=== PATIENT | female | born 1930 | race African-American/Black ===

== ENCOUNTER 2016-05-20 11:34 | Emergency (ER) | payer MEDICARE, MEDICAID ==
[~2016-05-20] VITALS: Ht 177.8 cm; Wt 80.3 kg
[~2016-05-20 11:34] MED LIST: FOLI1TAB16 PO; MECL12.5 PO; METO50TA3 PO; OXYB5SYR2 PO; SITA50TA PO
[2016-05-20 12:16] LABS: BASOPHILS % (AUTO) 0.4 % (0.0-2.0); DIFF TOTAL % 100 %; EOSINOPHILS % (AUTO) 0.5 % (0.0-6.0); HEMATOCRIT 37 % (33-45); HEMOGLOBIN 12.7 g/dL (11.5-14.8); LYMPHOCYTES # (AUTO) 1.5 /CMM (0.8-4.8); LYMPHOCYTES % (AUTO) 31.8 % (20.0-44.0); MEAN CORPUSCULAR HEMOGLOBIN 30 PG (26.0-33.0); MEAN CORPUSCULAR HGB CONC 34 g/dl (31.0-36.0); MEAN CORPUSCULAR VOLUME 89 fL (82-100); MONOCYTES # (AUTO) 0.9 /CMM (0.1-1.30); MONOCYTES % (AUTO) 18.4 % (2.0-12.0); NEUTROPHILS # (AUTO) 2.2 /CMM (1.8-8.9); NEUTROPHILS % (AUTO) 48.9 % (43.0-81.0); PLATELET COUNT (AUTO) 156 /CMM (150-450); RED BLOOD CELL COUNT(AUTO) 4.19 MIL/uL (4.0-5.2); WHITE BLOOD COUNT (AUTO) 4.7 K/uL (4.3-11.0)
[2016-05-20] MEDS ORDERED: NIFE30TA89 PO (12:20)
[2016-05-20] MEDS ORDERED: LOSA50TA21 PO (12:20)
[2016-05-20] MEDS ORDERED: METO25TA6 PO (12:20)
[2016-05-20] MEDS ORDERED: BLOO-697 IN (12:20)
[2016-05-20] MEDS ORDERED: ATOR40TA PO (12:20)
[2016-05-20] MEDS ORDERED: GLIP10TA11 PO (12:20)
[2016-05-20] MEDS ORDERED: SERT100T12 PO (12:20)
[2016-05-20] MEDS ORDERED: OMEP40CA37 PO (12:20)
[2016-05-20 12:28] LABS: KETONES,URINE Negative (NEGATIVE); LEUKOCYTE ESTERASE ,URINE Negative (NEGATIVE); PH,URINE 5.5 (5.0-8.0)
[2016-05-20 12:28] LABS: ALBUMIN 3.6 g/dL (3.4-5.0); BILIRUBIN,TOTAL 0.5 mg/dL (0.2-1.0); CALCIUM, SERUM 9.3 mg/dL (8.5-10.1); CREATININE 0.9 mg/dL (0.6-1.3); TOTAL PROTEIN, SERUM 7.2 g/dL (6.4-8.2)
[2016-05-20 12:33] LABS: ADD UA MICROSCOPIC YES
[2016-05-20 12:46] LABS: ADD URINE CULTURE NO; WBC,URINE 0-2 /HPF (0-3)
[2016-05-20] MEDS ORDERED: INSULIN REGULAR, HUMAN 100 UNIT/ML 10 ML VIAL ONE (13:17)
[2016-05-20] MEDS ORDERED: IV NS 0.9% 1,000 ML ONE (13:17)
[2016-05-20] MEDS ORDERED: IV SET PRIMARY PUMP SET 1 EA INFUS.SET MC ONE (13:17)
[2016-05-20] MEDS ORDERED: IV NS 0.9% 1,000 ML BAG IV ONE (13:30)
[2016-05-20] MEDS ORDERED: INSULIN REGULAR, HUMAN 100 UNIT/ML 10 ML VIAL SQ ONE (13:30)
[2016-05-20 15:36] VITALS: BP 155/76
== END 2016-05-20 15:38 | disposition home or self-care (01) ==
LOC: EDBD 11:35 → ER 11:35
DX: I44.7 Left bundle-branch block, unspecified (principal); E11.65 Type 2 diabetes mellitus with hyperglycemia; E86.0 Dehydration; I10 Essential (primary) hypertension; Z95.1 Presence of aortocoronary bypass graft
CPT/HCPCS: 36415; 80053; 81001; 82962; 84484; 85025; 93005; 96360; 96372; 99285; A4606; J1815; J7030; 81000-TC; Z7610

== ENCOUNTER 2016-05-26 12:37 | Emergency (ER) | payer MEDICARE, MEDICAID ==
[~2016-05-26] VITALS: Ht 157.5 cm; Wt 70.3 kg
[~2016-05-26 12:37] MED LIST changes: +ATOR40TA PO; +BLOO-697 IN; +GLIP10TA11 PO; +LOSA50TA21 PO; +METO25TA6 PO; +NIFE30TA89 PO; +OMEP40CA37 PO; +SERT100T12 PO
[2016-05-26] MEDS ORDERED: IV NS 0.9% 1,000 ML BAG IV ONE (13:00)
[2016-05-26] MEDS ORDERED: IV NS 0.9% 1,000 ML ONE (13:05)
[2016-05-26] MEDS ORDERED: IV SET PRIMARY 1 EA INFUS.SET MC ONE (13:05)
[2016-05-26 13:09] LABS: ABG HCO3 25.1 mmol/L; ABG PCO2 38.3 mmHg (35.0-45.0); ABG PH 7.434 (7.350-7.450); ABG PO2 76.1 mmHg (75.0-100.0); ABG TOTAL HEMOGLOBIN 13.2 G/dL (12.0-16.0); O2Hb 93.5 % (94.0-97.0)
[2016-05-26 13:10] LABS: BASOPHILS % (AUTO) 0.6 % (0.0-2.0); DIFF TOTAL % 100 %; EOSINOPHILS % (AUTO) 0.2 % (0.0-6.0); HEMATOCRIT 38 % (33-45); HEMOGLOBIN 12.5 g/dL (11.5-14.8); LYMPHOCYTES # (AUTO) 1.8 /CMM (0.8-4.8); LYMPHOCYTES % (AUTO) 32.3 % (20.0-44.0); MEAN CORPUSCULAR HEMOGLOBIN 30 PG (26.0-33.0); MEAN CORPUSCULAR HGB CONC 33 g/dl (31.0-36.0); MEAN CORPUSCULAR VOLUME 90 fL (82-100); MONOCYTES # (AUTO) 1.2 /CMM (0.1-1.30); MONOCYTES % (AUTO) 21.2 % (2.0-12.0); NEUTROPHILS # (AUTO) 2.6 /CMM (1.8-8.9); NEUTROPHILS % (AUTO) 45.7 % (43.0-81.0); PLATELET COUNT (AUTO) 158 /CMM (150-450); RED BLOOD CELL COUNT(AUTO) 4.19 MIL/uL (4.0-5.2); WHITE BLOOD COUNT (AUTO) 5.6 K/uL (4.3-11.0)
[2016-05-26 13:17] LABS: CREATININE 0.9 mg/dL (0.6-1.3); POTASSIUM 4.1 mmol/L (3.5-5.1)
[2016-05-26 14:50] LABS: KETONES,URINE Negative (NEGATIVE); LEUKOCYTE ESTERASE ,URINE Negative (NEGATIVE)
[2016-05-26 14:52] LABS: ADD UA MICROSCOPIC YES
[2016-05-26 15:03] LABS: ADD URINE CULTURE NO; WBC,URINE 0-2 /HPF (0-3)
[2016-05-26 15:31] VITALS: BP 128/74
== END 2016-05-26 15:32 | disposition home or self-care (01) ==
LOC: ER 12:39
DX: E11.65 Type 2 diabetes mellitus with hyperglycemia (principal); F32.9 Major depressive disorder, single episode, unspecified; I10 Essential (primary) hypertension; Z95.1 Presence of aortocoronary bypass graft; R82.99 Other abnormal findings in urine
CPT/HCPCS: 36415; 36600; 80048; 81001; 82962 ×2; 85025; 87086; 96360; 99284; A4606; J7030; 81000-TC; Z7610

== ENCOUNTER 2016-07-28 10:07 | Emergency (ER) | payer MEDICARE, MEDICAID ==
[~2016-07-28] VITALS: Ht 167.6 cm; Wt 92.1 kg
[~2016-07-28 10:07] MED LIST changes: -FOLI1TAB16 PO; -METO50TA3 PO; -SITA50TA PO
--- NOTE | 2016-07-28 10:13 | NUR ---
preston from assisted liviing for evaluation dt loss of appetite x 3 days. Pt is aao4, appears in no apparent distress, respiration even and unlabored,. no nausea and vomitting. Skin is warm to touch and non diaphoretic. patient is afebrile. no chest pain. vss
[2016-07-28 10:30] LABS: BASOPHILS # (AUTO) 0.1 /CMM (0.0-0.2); BASOPHILS % (AUTO) 1.7 % (0.0-2.0); EOSINOPHILS % (AUTO) 0.2 % (0.0-6.0); HEMATOCRIT 43 % (33-45); HEMOGLOBIN 14.1 g/dL (11.5-14.8); LYMPHOCYTES # (AUTO) 0.9 /CMM (0.8-4.8); MEAN CORPUSCULAR HEMOGLOBIN 30 PG (26.0-33.0); MEAN CORPUSCULAR HGB CONC 33 g/dl (31.0-36.0); MEAN CORPUSCULAR VOLUME 90 fL (82-100); MONOCYTES # (AUTO) 0.6 /CMM (0.1-1.30); MONOCYTES % (AUTO) 10.3 % (2.0-12.0); NEUTROPHILS # (AUTO) 4.5 /CMM (1.8-8.9); NEUTROPHILS % (AUTO) 73.8 % (43.0-81.0); PLATELET COUNT (AUTO) 185 /CMM (150-450); RDW COEFFICIENT OF VARIATION 11.7 (11.5-15.0); RED BLOOD CELL COUNT(AUTO) 4.79 MIL/uL (4.0-5.2); WHITE BLOOD COUNT (AUTO) 6.1 K/uL (4.3-11.0)
[2016-07-28] MEDS ORDERED: IV NS 0.9% 1,000 ML BAG IV ONE (10:30)
--- NOTE | 2016-07-28 10:30 | NUR ---
iv accessed to right wrist 20, blood sample sent to lab
[2016-07-28] MEDS ORDERED: IV SET PRIMARY PUMP SET 1 EA INFUS.SET MC ONE (10:31)
[2016-07-28] MEDS ORDERED: IV NS 0.9% 1,000 ML ONE (10:31)
--- NOTE | 2016-07-28 10:36 | NUR ---
pharmacy technician per diem at
[2016-07-28 10:41] LABS: CALCIUM, SERUM 9.5 mg/dL (8.5-10.1); CREATININE 0.9 mg/dL (0.6-1.3); POTASSIUM 3.9 mmol/L (3.5-5.1)
[2016-07-28 10:55] LABS: APPEARANCE,URINE Clear (CLEAR); BILIRUBIN,URINE Negative (NEGATIVE); BLOOD, URINE Trace-intact Ery/uL (NEGATIVE); COLOR,URINE Yellow (YELLOW); KETONES,URINE Negative (NEGATIVE); LEUKOCYTE ESTERASE ,URINE Negative (NEGATIVE); NITRITE, URINE Negative (NEGATIVE); PROTEIN,URINE 30 mg/dl (NEGATIVE); UGLUCOSE >=1000 mg/dL (NEGATIVE); UROBILINOGEN,URINE 0.2 EU/dL (0.2)
[2016-07-28 10:58] LABS: THYROID STIMULATING HORMONE 0.582 uIU/mL (0.358-3.74)
[2016-07-28 11:05] LABS: WBC,URINE 0-2 /HPF (0-3)
[2016-07-28 11:06] LABS: ADD URINE CULTURE NO; BACTERIA,URINE Rare /HPF (None Seen); SQUAMOUS EPITHELIAL CELL,UR Few /HPF (None Seen)
[2016-07-28] MEDS ORDERED: MEMA5TAB15 PO (11:11)
[2016-07-28] MEDS ORDERED: DULO30CA51 PO (11:11)
[2016-07-28] MEDS ORDERED: MECL-102 PO (11:11)
[2016-07-28] MEDS ORDERED: ACET-2117 PO (11:11)
--- NOTE | 2016-07-28 12:49 | NUR ---
CALLED [facility] FOR TRANSPORTATION GOING BACK TO [facility], [facility] 30 MIN
[2016-07-28 13:05] VITALS: BP 135/78
--- NOTE | 2016-07-28 13:24 | NUR ---
IV removed. Catheter intact and site benign. Pressure and 4x4 applied to site. No bleeding noted.
== END 2016-07-28 13:28 | disposition home or self-care (01) ==
LOC: ER 10:15
DX: F32.9 Major depressive disorder, single episode, unspecified (principal); I10 Essential (primary) hypertension; E11.9 Type 2 diabetes mellitus without complications; Z95.1 Presence of aortocoronary bypass graft; R82.79 Other abnormal findings on microbiological examination of urine
CPT/HCPCS: 36415; 80048; 81001; 84443; 85025; 87086; 93005; 96360; 99285; A4606; J7030; 81000-TC; Z7610

== ENCOUNTER 2016-08-01 17:07 | Inpatient (IN) | payer MEDICARE, MEDICAID ==
[~2016-08-01] VITALS: Ht 160 cm; Wt 80.3 kg
[~2016-08-01 17:07] MED LIST changes: +ACET-2117 PO; +DULO30CA51 PO; +MECL-102 PO; -MECL12.5 PO; +MEMA5TAB15 PO; -SERT100T12 PO
--- NOTE | 2016-08-01 17:08 | NUR ---
nick from [facility] c/o nausea and vomtting since this am. Patient is also complaining of epigastric pain, 4/10. Patient is aao4, appears in no apparent distress. Skin is warm to touch and non diaphoretic. Patient is afebrile. Gowned patient and placed on tele monitor. vss.
--- NOTE | 2016-08-01 17:25 | NUR ---
Urine sample sent to lab
[2016-08-01 17:43] LABS: APPEARANCE,URINE Clear (CLEAR); BILIRUBIN,URINE Negative (NEGATIVE); BLOOD, URINE Trace-intact Ery/uL (NEGATIVE); COLOR,URINE Yellow (YELLOW); KETONES,URINE Negative (NEGATIVE); LEUKOCYTE ESTERASE ,URINE Negative (NEGATIVE); NITRITE, URINE Negative (NEGATIVE); PROTEIN,URINE 100 mg/dl (NEGATIVE); UGLUCOSE >=1000 mg/dL (NEGATIVE); UROBILINOGEN,URINE 0.2 EU/dL (0.2)
--- NOTE | 2016-08-01 17:43 | NUR ---
ekg at bs
[2016-08-01] MEDS ORDERED: IV SET PRIMARY 1 EA INFUS.SET MC ONE (17:45)
[2016-08-01] MEDS ORDERED: IV NS 0.9% 500 ML IV ONE (17:45)
[2016-08-01] MEDS ORDERED: ONDANSETRON HCL/PF 4 MG/2 ML VIAL ONE (17:45)
[2016-08-01 17:51] LABS: ADD URINE CULTURE NO; BACTERIA,URINE None seen /HPF (None Seen); SQUAMOUS EPITHELIAL CELL,UR Few /HPF (None Seen); WBC,URINE 0-2 /HPF (0-3)
[2016-08-01] MEDS ORDERED: ONDANSETRON HCL/PF 4 MG/2 ML VIAL IVP ONE (18:00)
[2016-08-01] MEDS ORDERED: IV NS 0.9% 500 ML BAG IV ONE (18:00)
[2016-08-01 18:02] LABS: CALCIUM, SERUM 9.8 mg/dL (8.5-10.1); CARBON DIOXIDE 26 mmol/L (21-32); CHLORIDE 98 mmol/L (98-107); CREATININE 0.8 mg/dL (0.6-1.3); GLUCOSE 312 mg/dL (74-106); POTASSIUM 3.5 mmol/L (3.5-5.1); SODIUM SERUM 136 mmol/L (136-145); UREA NITROGEN, BLOOD 18 mg/dL (7-18)
[2016-08-01 18:05] LABS: BASOPHILS # (AUTO) 0.5 /CMM (0.0-0.2); EOSINOPHILS % (AUTO) 0.3 % (0.0-6.0); HEMATOCRIT 43 % (33-45); HEMOGLOBIN 14.5 g/dL (11.5-14.8); INR 1.06 (0.87-1.13); LYMPHOCYTES # (AUTO) 1.8 /CMM (0.8-4.8); MEAN CORPUSCULAR HEMOGLOBIN 30 PG (26.0-33.0); MEAN CORPUSCULAR HGB CONC 34 g/dl (31.0-36.0); MEAN CORPUSCULAR VOLUME 89 fL (82-100); MONOCYTES # (AUTO) 1.6 /CMM (0.1-1.30); MONOCYTES % (AUTO) 15.7 % (2.0-12.0); NEUTROPHILS # (AUTO) 6.1 /CMM (1.8-8.9); NEUTROPHILS % (AUTO) 60.8 % (43.0-81.0); PLATELET COUNT (AUTO) 186 /CMM (150-450); RDW COEFFICIENT OF VARIATION 11.8 (11.5-15.0); RED BLOOD CELL COUNT(AUTO) 4.81 MIL/uL (4.0-5.2)
[2016-08-01 18:07] LABS: ALANINE AMINOTRANSFERASE 75 U/L (12-78); ALBUMIN 4.2 g/dL (3.4-5.0); ALKALINE PHOSPHATASE 106 U/L (46-116); ASPARTATE AMINOTRANSFERASE 49 U/L (15-37); BILIRUBIN,DIRECT 0.1 mg/dL (0.0-0.2); BILIRUBIN,TOTAL 0.6 mg/dL (0.2-1.0); LIPASE 106 U/L (73-393); TOTAL PROTEIN, SERUM 8.5 g/dL (6.4-8.2)
[2016-08-01 18:08] LABS: BASOPHILS % (AUTO) 5.2 % (0.0-2.0)
[2016-08-01 18:10] LABS: TROPONIN I < 0.017 ng/mL (0.00-0.056)
--- NOTE | 2016-08-01 18:15 | NUR ---
Pt is back from ct
--- NOTE | 2016-08-01 18:30 | NUR ---
PAGED EQUIPMENT PROCESSOR FOR [facility] DR BROOKS
--- NOTE | 2016-08-01 18:41 | NUR ---
CALLED NURSING SUP FOR TELE BED
[2016-08-01] MEDS ORDERED: OXYB5TAB11 PO (18:53)
[2016-08-01 18:55] LABS: ANISOCYTOSIS 1+; LYMPHOCYTES % (MANUAL) 25 % (16-48); MONOCYTES % (MANUAL) 19 % (0-11.0); NEUTROPHILS % (MANUAL) 54 (42-76); PLATELET ESTIMATE ADEQU; REACTIVE LYMPHOCYTES 2 % (0-0)
--- NOTE | 2016-08-01 19:02 | NUR ---
Report given to JACKIE Lopez for change of condition
--- NOTE | 2016-08-01 19:03 | NUR ---
patient transported to [address] [place] [address]
--- NOTE | 2016-08-01 19:15 | NUR ---
CONCERT PIANIST ADMITTING NOTE RECEIVED PT COMING FROM ER VIA GURNEY, NO COMPLAINT OF PAIN OR RESPIRATORY DISTRESS NOTED DURING PHYSICAL ASSESSMENT, VITALS ARE WNL, ADMITTING DR. WILL BE GRAY MCKEON. MD AWARE OF ADMISSION WELL CHARGE NURSE, PT WILL BE KEPT CLEAN/DRY AND COMFORTABLE, SAFETY MEASURES WILL BE MAINTAINED AT ALL TIMES, NEEDS WILL BE ANTICIPATED AND ATTENDED TO DURING HOURLY ROUNDS AND NEEDED.
[2016-08-01 20:00] VITALS: BP 139/78
[2016-08-01] MEDS ORDERED: DEXTROSE 50%-WATER 50 ML DISP.SYRIN IV PRN (20:30)
[2016-08-01] MEDS ORDERED: *INSULIN REGULAR(HUMULIN R)HUM 100 UNIT/ML VIAL SQ PRN (20:30)
[2016-08-01] MEDS ORDERED: ENOXAPARIN SODIUM 40 MG/0.4 ML DISP.SYRIN SQ SCH (20:30)
[2016-08-01] MEDS ORDERED: ACETAMINOPHEN 325 MG TABLET PO PRN (20:30)
[2016-08-01 20:44] LABS: CANNABINOID, URINE NEGATIVE (NEGATIVE); PHENCYCLIDINE SCREEN,URINE NEGATIVE (NEGATIVE)
[2016-08-01 20:57] LABS: THYROID STIMULATING HORMONE 0.763 uIU/mL (0.358-3.74)
[2016-08-01] MEDS ORDERED: MEMANTINE HCL 5 MG TABLET ONE (21:07)
[2016-08-01] MEDS ORDERED: ATORVASTATIN 40 MG TABLET ONE (21:07)
[2016-08-01] MEDS ORDERED: ENOXAPARIN SODIUM 40 MG/0.4 ML DISP.SYRIN SQ ONE (21:07)
--- NOTE | 2016-08-01 21:30 | NUR ---
BS IS 292 PT TO REMAIN NPO UNTIL SWALLOW EVAL, NO INSULIN PROVIDED TO PREVENT HYPOGLYCEMIA, WILL CONTINUE TO MONITOR BS CLOSELY FOR NEED FOR COVERAGE.
--- NOTE | 2016-08-01 21:30 | NUR ---
PT IS ASKING FOR HER PURSE, SPOKE TO HARRISON AND HE CONFIRMED WITH [facility] THAT PURSE REMAINED AT THE FACILITY, INFORMED PT, PT VERBALIZES UNDERSTANDING.
[2016-08-01] MEDS: BLOOD SUGAR DIAGNOSTIC 1 EACH STRIP IN SCH (21:36)
[2016-08-01] MEDS ORDERED: INSULIN REGULAR, HUMAN 100 UNIT/ML 10 ML VIAL ONE (21:47)
[2016-08-01] MEDS: ATORVASTATIN 40 MG TABLET PO SCH (21:49)
[2016-08-01] MEDS: MEMANTINE HCL 5 MG TABLET PO SCH (21:50)
--- NOTE | 2016-08-01 21:51 | NUR ---
PO MEDICATION NOT GIVEN DUE TO PENDING SWALLOW EVALUATION
[2016-08-02] VITALS (7 sets, daily range): BP systolic 110–151; BP diastolic 65–84
[2016-08-02] MEDS ORDERED: IV NS 0.9% 1,000 ML ONE (01:08)
[2016-08-02] MEDS ORDERED: IV SET PRIMARY PUMP SET 1 EA INFUS.SET MC ONE (01:09)
[2016-08-02] MEDS: IV NS 0.9% 1,000 ML IV PRN (01:27)
[2016-08-02] MEDS: BLOOD SUGAR DIAGNOSTIC 1 EACH STRIP IN SCH ×4 (06:22→21:13)
--- NOTE | 2016-08-02 07:09 | NUR ---
TELE CLOSING NOTE PT REMAINED STABLE DURING NIGHT, ENDORSE TO AM NURSE FOR NIKA.
--- NOTE | 2016-08-02 07:40 | NUR ---
MS RN RECEIVED ON BED, AWAKE,ALERT,ORIENTED X3,NOT IN ANY FORM OF DISTRESS, RESPIRATIONS EVEN AND UNLABORED, NO SOB NOTED, LUNGS ARE CLEAR,ABDOMEN SOFT,POSITIVE BOWEL SOUNDS, DENIES PAIN AT THIS TIME,ALL NEEDS ATTENDED.
[2016-08-02 08:04] LABS: BASOPHILS % (AUTO) 0.2 % (0.0-2.0); EOSINOPHILS % (AUTO) 0.2 % (0.0-6.0); HEMATOCRIT 37 % (33-45); HEMOGLOBIN 12.7 g/dL (11.5-14.8); LYMPHOCYTES # (AUTO) 1.4 /CMM (0.8-4.8); LYMPHOCYTES % (AUTO) 22.2 % (20.0-44.0); MEAN CORPUSCULAR HEMOGLOBIN 31 PG (26.0-33.0); MEAN CORPUSCULAR HGB CONC 34 g/dl (31.0-36.0); MEAN CORPUSCULAR VOLUME 89 fL (82-100); MONOCYTES % (AUTO) 16.6 % (2.0-12.0); NEUTROPHILS # (AUTO) 3.9 /CMM (1.8-8.9); NEUTROPHILS % (AUTO) 60.8 % (43.0-81.0); PLATELET COUNT (AUTO) 167 /CMM (150-450); RDW COEFFICIENT OF VARIATION 12.5 (11.5-15.0); RED BLOOD CELL COUNT(AUTO) 4.18 MIL/uL (4.0-5.2); WHITE BLOOD COUNT (AUTO) 6.3 K/uL (4.3-11.0)
[2016-08-02 08:15] LABS: CALCIUM, SERUM 8.4 mg/dL (8.5-10.1); CREATININE 0.6 mg/dL (0.6-1.3); POTASSIUM 3.7 mmol/L (3.5-5.1)
[2016-08-02 08:29] LABS: TROPONIN I 0.025 ng/mL (0.00-0.056)
--- NOTE | 2016-08-02 08:30 | NUR ---
MS MEJIA NPO AT THIS TIME .NOT UNTIL BE SEEN BY
[2016-08-02 08:31] LABS: ALBUMIN 3.1 g/dL (3.4-5.0); BILIRUBIN,TOTAL 0.9 mg/dL (0.2-1.0); MAGNESIUM 1.6 mg/dL (1.8-2.4); PHOSPHORUS 2.2 mg/dL (2.5-4.9); THYROID STIMULATING HORMONE 0.634 uIU/mL (0.358-3.74); TOTAL PROTEIN, SERUM 6.5 g/dL (6.4-8.2)
[2016-08-02] MEDS ORDERED: BLOOD SUGAR DIAGNOSTIC 1 EACH STRIP IN SCH (09:00)
--- NOTE | 2016-08-02 09:10 | NUR ---
MS RN WAS SEEN BY DR. LEDESMA, NO ORDER AT THIS TIME.
[2016-08-02] MEDS ORDERED: POTASSIUM PHOSPHATE MM 15 MMOL in IV D5W 250 ML IV SCH (10:00)
--- NOTE | 2016-08-02 11:00 | NUR ---
MS JACKIE ROBLES , LUNCH ORDERED, WILL GIVE MEAL LATER.
[2016-08-02 11:12] LABS: LYMPHOCYTES % (MANUAL) 9 % (16-48); MONOCYTES % (MANUAL) 11 % (0-11.0); NEUTROPHILS % (MANUAL) 80 (42-76); PLATELET ESTIMATE ADEQUATE
--- NOTE | 2016-08-02 12:00 | NUR ---
MS RN BS - 222 - 8 UNITS GIVEN,ALL NEEDS ATTENDED.
[2016-08-02] MEDS ORDERED: SECONDARY IV SET 1 EA INFUS.SET MC ONE (12:20)
[2016-08-02] MEDS: Magnesium 1GM/D5W 100ML PREMIX 100 ML IV SCH ×2 (12:25→13:46)
[2016-08-02] MEDS: LOSARTAN POTASSIUM 50 MG TABLET PO SCH (12:26)
[2016-08-02] MEDS: glipiZIDE 10 MG TABLET PO SCH ×2 (12:26→17:55)
[2016-08-02] MEDS: OXYBUTYNIN CHLORIDE 5 MG TABLET PO SCH ×2 (12:27→17:52)
[2016-08-02] MEDS: DOCUSATE SODIUM 100 MG CAPSULE PO SCH (12:27)
[2016-08-02] MEDS: MECLIZINE HCL 25 MG TABLET PO SCH (12:27)
[2016-08-02] MEDS: ASPIRIN EC 325 MG TABLET.DR PO SCH (12:27)
[2016-08-02] MEDS: NIFEdipine XL (30MG) 30 MG TAB PO SCH (12:28)
[2016-08-02] MEDS: METOPROLOL TARTRATE 25 MG TABLET PO SCH ×2 (12:29→17:52)
[2016-08-02] MEDS: INSULIN REGULAR, HUMAN 100 UNIT/ML 3 ML VIAL SQ PRN ×2 (13:01→17:59)
[2016-08-02] MEDS: PANTOPRAZOLE 40 MG TABLET.DR PO SCH (15:46)
[2016-08-02] MEDS: Potassium Phosphate meq 11 MEQ in IV D5W 100 ML IV SCH ×2 (15:46→17:53)
--- NOTE | 2016-08-02 18:00 | NUR ---
MS MEJIA BS - 187 - 4 UNITS OF REGULAR INSULIN GIVEN.
--- NOTE | 2016-08-02 18:14 | NUR ---
MS RN ON BED, NO DISTRESS NOTED,ALL NEEDS ATTENDED.
[2016-08-02] MEDS ORDERED: LIDOCAINE 5% OINT 35.44 GM TUBE TP PRN (18:30)
--- NOTE | 2016-08-02 19:30 | NUR ---
RN NOTE; RECEIVED PT AWAKE AND ALERT. AMBULATING W/ WALKER TO THE BATHROOM. NO C/O H/A. NO BLURRED VISION. NO C/O WEAKNESS. NO N/V. W/ CHRONIC BILAT. SHOULDER PAIN . ASSISTED PT BACK IN BED . HEART MONITOR IN PLACE . READING SR W/ BBB. CALL LIGHT WITHIN REACH. WILL CONT TO MONITOR .
[2016-08-02] MEDS ORDERED: ENOXAPARIN SODIUM 40 MG/0.4 ML DISP.SYRIN SQ SCH (21:00)
[2016-08-02] MEDS: ATORVASTATIN 40 MG TABLET PO SCH (21:13)
[2016-08-02] MEDS: MEMANTINE HCL 5 MG TABLET PO SCH (21:13)
--- NOTE | 2016-08-02 21:33 | NUR ---
tylenol 650 mg given as ordered per pt's request for c/o bilat. shoulder pain. will cont to monitor
[2016-08-03] VITALS: BP 122/59
[2016-08-03] MEDS: IV NS 0.9% 1,000 ML IV PRN (02:00)
[2016-08-03 04:00] VITALS: BP 147/72
--- NOTE | 2016-08-03 06:09 | NUR ---
RN NOTE; PT IN BED SLEEPING AROUSES EASILY. BREATHING EVENLY. NO SOB. NO DISTRESS. TELE READING: SR W/ BBB. SKIN WARM AND DRY. NO C/O H/A. NO DIZZINESS. NO WEAKNESS. BATHROOM PRIVILEGE W/ WALKER. CATA WELL. NEEDS ATTENDED . ASSISTED W/ ADLS. CALL LIGHT WITHIN REACH. WILL CONT TO MONITOR AND WILL ENDORSE TO AM SHIFT FOR NIKA
[2016-08-03 06:30] VITALS: BP 146/76
[2016-08-03] MEDS: BLOOD SUGAR DIAGNOSTIC 1 EACH STRIP IN SCH ×3 (06:39→17:45)
[2016-08-03] MEDS: INSULIN REGULAR, HUMAN 100 UNIT/ML 3 ML VIAL SQ PRN ×2 (06:41→12:08)
--- NOTE | 2016-08-03 07:15 | NUR ---
RN OPENING NOTES RECEIVED PATIENT IN BED, AWAKE, HEAD OF BED ELEVATED, NO SOB OR DISTRESS NOTED. ON TELE MONITOR SR HEART RATE 57 WITH VVV. ALERT AND ORIENTED X3, VERBALLY RESPONSIVE AND ABLE TO MAKE NEEDS KNOWN. IV INTACT AND PATENT. KEPT PATIENT CLEAN AND COMFORTABLE IN BED, CALL LIGHT WITHIN PATIENT REACH, WILL CONTINUE TO MONITOR ACCORDINGLY.
[2016-08-03 07:25] LABS: CALCIUM, SERUM 8.9 mg/dL (8.5-10.1); CREATININE 0.6 mg/dL (0.6-1.3); POTASSIUM 4.3 mmol/L (3.5-5.1)
[2016-08-03 07:31] LABS: CHOLESTEROL 129 mg/dL (<200); HDL CHOLESTEROL 42 mg/dL (40-60); LDL 70 mg/dL (0-99); TRIGLYCERIDES 53 mg/dL (30-150)
[2016-08-03 07:33] LABS: BASOPHILS % (AUTO) 0.3 % (0.0-2.0); EOSINOPHILS % (AUTO) 0.4 % (0.0-6.0); HEMATOCRIT 39 % (33-45); HEMOGLOBIN 12.7 g/dL (11.5-14.8); LYMPHOCYTES # (AUTO) 1.9 /CMM (0.8-4.8); MEAN CORPUSCULAR HEMOGLOBIN 30 PG (26.0-33.0); MEAN CORPUSCULAR HGB CONC 33 g/dl (31.0-36.0); MEAN CORPUSCULAR VOLUME 90 fL (82-100); MONOCYTES # (AUTO) 1.1 /CMM (0.1-1.30); MONOCYTES % (AUTO) 20.6 % (2.0-12.0); NEUTROPHILS # (AUTO) 2.3 /CMM (1.8-8.9); NEUTROPHILS % (AUTO) 42.7 % (43.0-81.0); PLATELET COUNT (AUTO) 169 /CMM (150-450); RDW COEFFICIENT OF VARIATION 12.9 (11.5-15.0); RED BLOOD CELL COUNT(AUTO) 4.28 MIL/uL (4.0-5.2); WHITE BLOOD COUNT (AUTO) 5.3 K/uL (4.3-11.0)
[2016-08-03 08:00] VITALS: BP 133/71
[2016-08-03 08:16] LABS: MAGNESIUM 1.8 mg/dL (1.8-2.4); PHOSPHORUS 3.4 mg/dL (2.5-4.9)
[2016-08-03] MEDS: ASPIRIN EC 325 MG TABLET.DR PO SCH (08:35)
[2016-08-03] MEDS: glipiZIDE 10 MG TABLET PO SCH ×2 (08:35→17:45)
[2016-08-03] MEDS: DOCUSATE SODIUM 100 MG CAPSULE PO SCH (08:35)
[2016-08-03] MEDS: OXYBUTYNIN CHLORIDE 5 MG TABLET PO SCH ×2 (08:35→17:44)
[2016-08-03] MEDS: PANTOPRAZOLE 40 MG TABLET.DR PO SCH (08:36)
[2016-08-03] MEDS: LOSARTAN POTASSIUM 50 MG TABLET PO SCH (08:39)
[2016-08-03] MEDS: NIFEdipine XL (30MG) 30 MG TAB PO SCH (08:40)
[2016-08-03 10:18] LABS: *SPE A/G RATIO 1.3 (0.7-1.7); *SPE ALBUMIN 3.4 g/dL (2.9-4.4); *SPE ALPHA-1-GLOBULIN 0.2 g/dL (0.0-0.4); *SPE ALPHA-2-GLOBULIN 0.6 g/dL (0.4-1.0); *SPE GLOBULIN, TOTAL 2.6 g/dL (2.2-3.9); *SPE M-SPIKE 0.2 g/dL (Not Observed); *SPEGAMMA GLOBULIN 0.8 g/dL (0.4-1.8)
[2016-08-03] MEDS: METOPROLOL TARTRATE 25 MG TABLET PO SCH ×2 (10:30→17:00)
[2016-08-03 11:10] LABS: VIT D, 25-HYDROXY 24.6 ng/mL (30.0-100.0)
--- NOTE | 2016-08-03 11:30 | NUR ---
RN NOTES BLOOD SUGAR 362, 20 UNITS GIVEN
[2016-08-03] MEDS: MECLIZINE HCL 25 MG TABLET PO SCH (12:03)
[2016-08-03 12:35] LABS: EOSINOPHILS % (MANUAL) 1 % (0-4); LYMPHOCYTES % (MANUAL) 37 % (16-48); MONOCYTES % (MANUAL) 19 % (0-11.0); NEUTROPHILS % (MANUAL) 43 (42-76); PLATELET ESTIMATE ADEQUATE
[2016-08-03 16:00] VITALS: BP 132/79
[2016-08-03 17:00] VITALS: BP 108/55
--- NOTE | 2016-08-03 19:24 | NUR ---
RN CLOSING NOTES DISCHARGE INSTRUCTIONS GIVEN TO PATIENT. PNEUMONIA AND FLU VACCINE NOT GIVEN. PATIENT LEFT VIA GURNEY ACCOMPANIED WITH 2 EMT'S IN STABLE CONDITION. NO SOB OR DISTRESS NOTED. NO COMPLAIN OF PAIN NOR CHEST PAIN. VITALS SIGNS CHECKED AND RECORDED.
== END 2016-08-03 18:30 | DRG 74 ==
LOC: EDBD → ER 17:09 → TELE 19:00 → MED 08-03 10:07
PROVIDERS: ADMIT Internal Medicine; ATTEND Internal Medicine
DX: G90.8 Other disorders of autonomic nervous system (principal); R53.1 Weakness; E78.5 Hyperlipidemia, unspecified; F32.9 Major depressive disorder, single episode, unspecified; I10 Essential (primary) hypertension; I25.10 Atherosclerotic heart disease of native coronary artery without angina pectoris; I44.7 Left bundle-branch block, unspecified; K21.9 Gastro-esophageal reflux disease without esophagitis; Z95.1 Presence of aortocoronary bypass graft; E11.65 Type 2 diabetes mellitus with hyperglycemia; Z91.14 Patient's other noncompliance with medication regimen
CPT/HCPCS: 36415; 70450-TC; 71010-TC; 80048-TC; 80053-TC; 80061-TC; 80076-TC; 80305; 81000-TC; 82306; 82962-TC; 83690-TC; 83735-TC; 83880; 84100-TC; 84155; 84165; 84439-TC; 84443-TC; 84484-TC; 85025-TC; 85652-TC; 85730-TC; 87081-TC; 92521; 92526; 92611-TC; 93307-TC; 93880-TC; 97001-TC; 97116-TC; 97530-TC; A4606; J1650; J1815; J2405; J3475; J3490; J7030; J7040; J7060; J8597; Z7610

== ENCOUNTER 2016-08-10 12:32 | Emergency (ER) | payer MEDICARE, MEDICAID ==
[~2016-08-10] VITALS: Ht 157.5 cm; Wt 75.7 kg
[~2016-08-10 12:32] MED LIST changes: -DULO30CA51 PO; -OXYB5SYR2 PO; +OXYB5TAB11 PO
[2016-08-10] MEDS ORDERED: IV SET PRIMARY 1 EA INFUS.SET MC ONE (12:40)
[2016-08-10] MEDS ORDERED: ONDANSETRON HCL/PF 4 MG/2 ML VIAL ONE (12:40)
[2016-08-10] MEDS ORDERED: IV NS 0.9% 500 ML IV ONE (12:40)
--- NOTE | 2016-08-10 12:40 | NUR ---
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 AAOX2. VSS. NOTED WITH GENERALIZED WEAKNESS. SEEN BY MD FOR EVAL. SAFETY AND COMFORT MEASURES PROVIDED. WILL MONITOR.
--- NOTE | 2016-08-10 12:50 | NUR ---
IV ACCESS STARTED. PT MEDICATED ORDERED.
[2016-08-10] MEDS ORDERED: ONDANSETRON HCL/PF 4 MG/2 ML VIAL IVP ONE (13:00)
[2016-08-10] MEDS ORDERED: IV NS 0.9% 500 ML BAG IV ONE (13:00)
[2016-08-10 13:11] LABS: BASOPHILS % (AUTO) 0.2 % (0.0-2.0); EOSINOPHILS % (AUTO) 0.7 % (0.0-6.0); HEMATOCRIT 39 % (33-45); LYMPHOCYTES # (AUTO) 1.6 /CMM (0.8-4.8); LYMPHOCYTES % (AUTO) 30.4 % (20.0-44.0); MEAN CORPUSCULAR HEMOGLOBIN 30 PG (26.0-33.0); MEAN CORPUSCULAR HGB CONC 34 g/dl (31.0-36.0); MEAN CORPUSCULAR VOLUME 89 fL (82-100); MONOCYTES # (AUTO) 0.8 /CMM (0.1-1.30); MONOCYTES % (AUTO) 15.4 % (2.0-12.0); NEUTROPHILS # (AUTO) 2.7 /CMM (1.8-8.9); NEUTROPHILS % (AUTO) 53.3 % (43.0-81.0); PLATELET COUNT (AUTO) 184 /CMM (150-450); RDW COEFFICIENT OF VARIATION 12.3 (11.5-15.0); RED BLOOD CELL COUNT(AUTO) 4.32 MIL/uL (4.0-5.2); WHITE BLOOD COUNT (AUTO) 5.1 K/uL (4.3-11.0)
[2016-08-10 13:19] LABS: ALBUMIN 3.7 g/dL (3.4-5.0); BILIRUBIN,DIRECT 0.1 mg/dL (0.0-0.2); BILIRUBIN,TOTAL 0.7 mg/dL (0.2-1.0); CALCIUM, SERUM 9.6 mg/dL (8.5-10.1); CREATININE 0.9 mg/dL (0.6-1.3); POTASSIUM 4.5 mmol/L (3.5-5.1); TOTAL PROTEIN, SERUM 7.6 g/dL (6.4-8.2)
--- NOTE | 2016-08-10 13:30 | NUR ---
PER MD PATIENT IS OKAY T EAT. CALLED FOOD TRAY FOR PT.
[2016-08-10 13:43] LABS: APPEARANCE,URINE Clear (CLEAR); BILIRUBIN,URINE Negative (NEGATIVE); BLOOD, URINE Trace-intact Ery/uL (NEGATIVE); COLOR,URINE Yellow (YELLOW); KETONES,URINE Negative (NEGATIVE); LEUKOCYTE ESTERASE ,URINE Negative (NEGATIVE); NITRITE, URINE Negative (NEGATIVE); PROTEIN,URINE Negative (NEGATIVE); UGLUCOSE >=1000 mg/dL (NEGATIVE); UROBILINOGEN,URINE 0.2 EU/dL (0.2)
[2016-08-10 13:44] LABS: ADD URINE CULTURE NO; BACTERIA,URINE Few /HPF (None Seen); RBC,URINE 0-2 /HPF (0-2); SQUAMOUS EPITHELIAL CELL,UR Few /HPF (None Seen); WBC,URINE 0-2 /HPF (0-3)
--- NOTE | 2016-08-10 14:31 | NUR ---
CALLED [facility] FOR TRANSPORT BACK TO [facility], ETA 30 MIN
[2016-08-10 14:51] VITALS: BP 136/74
--- NOTE | 2016-08-10 14:51 | NUR ---
Patient discharged to home in stable condition. Written and verbal after care instructions given. Patient verbalizes understanding of instruction. REPORT GIVEN TO MEDRESPONSE STAFF.
== END 2016-08-10 15:02 ==
LOC: EDBD 12:34 → ER 12:34
DX: E11.65 Type 2 diabetes mellitus with hyperglycemia (principal); I10 Essential (primary) hypertension; E78.00 Pure hypercholesterolemia, unspecified; K21.9 Gastro-esophageal reflux disease without esophagitis; Z95.1 Presence of aortocoronary bypass graft
CPT/HCPCS: 36415; 71010; 80048; 80076; 81001; 84484; 85025; 93005; 96374; 99285; A4606; J2405; J7040; 81000-TC; Z7610

== ENCOUNTER 2016-10-09 20:07 | Inpatient (IN) | payer MEDICARE, MEDICAID ==
[~2016-10-09] VITALS: Ht 172.7 cm; Wt 79.4 kg
--- NOTE | 2016-10-09 20:12 | NUR ---
PT BIB FAMILY TO ER BED 11. HERE FOR MEDICAL CLEARANCE PRIOR TO JENNIFER PSYCH ADMISSION. PER REPORT, AGRESSIVE TO STAFF AND FAMILY. ASKING PEOPLE TO BRING HER ALCOHOL. 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 AAOX3. PLACED ON MONITOR. STABLE VITALS. AWAITINGMD EVAL.
--- NOTE | 2016-10-09 20:40 | NUR ---
DR JUDD AT BEDSIDE FOR EVAL.
[2016-10-09 20:52] LABS: BASOPHILS % (AUTO) 0.1 % (0.0-2.0); EOSINOPHILS % (AUTO) 0.4 % (0.0-6.0); HEMATOCRIT 40 % (33-45); HEMOGLOBIN 13.4 g/dL (11.5-14.8); LYMPHOCYTES % (AUTO) 33.1 % (20.0-44.0); MEAN CORPUSCULAR HEMOGLOBIN 31 PG (26.0-33.0); MEAN CORPUSCULAR HGB CONC 34 g/dl (31.0-36.0); MEAN CORPUSCULAR VOLUME 91 fL (82-100); MONOCYTES # (AUTO) 1.2 /CMM (0.1-1.30); MONOCYTES % (AUTO) 19.5 % (2.0-12.0); NEUTROPHILS # (AUTO) 2.8 /CMM (1.8-8.9); NEUTROPHILS % (AUTO) 46.9 % (43.0-81.0); PLATELET COUNT (AUTO) 223 /CMM (150-450); RDW COEFFICIENT OF VARIATION 11.7 (11.5-15.0); RED BLOOD CELL COUNT(AUTO) 4.37 MIL/uL (4.0-5.2)
[2016-10-09 21:01] LABS: CARBON DIOXIDE 34 mmol/L (21-32); CHLORIDE 104 mmol/L (98-107); GLUCOSE 210 mg/dL (74-106); SODIUM SERUM 141 mmol/L (136-145); UREA NITROGEN, BLOOD 16 mg/dL (7-18)
[2016-10-09 21:13] LABS: LYMPHOCYTES % (MANUAL) 38 % (16-48); MONOCYTES % (MANUAL) 12 % (0-11.0); NEUTROPHILS % (MANUAL) 50 (42-76)
[2016-10-09 21:19] LABS: ALANINE AMINOTRANSFERASE 27 U/L (12-78); ALCOHOL, BLOOD < 3 mg/dL (0-0); ALKALINE PHOSPHATASE 98 U/L (46-116); ASPARTATE AMINOTRANSFERASE 18 U/L (15-37); BILIRUBIN,DIRECT 0.1 mg/dL (0.0-0.2); BILIRUBIN,TOTAL 0.5 mg/dL (0.2-1.0); TOTAL PROTEIN, SERUM 8.1 g/dL (6.4-8.2)
[2016-10-09 21:20] LABS: ACETAMINOPHEN < 2 ug/ml (10-30); SALICYLATE < 2.8 mg/dL (2.8-20.0)
[2016-10-09 21:29] LABS: APPEARANCE,URINE Clear (CLEAR); BILIRUBIN,URINE Negative (NEGATIVE); BLOOD, URINE Negative Ery/uL (NEGATIVE); COLOR,URINE Light yellow (YELLOW); KETONES,URINE Negative (NEGATIVE); LEUKOCYTE ESTERASE ,URINE Negative (NEGATIVE); NITRITE, URINE Negative (NEGATIVE); PROTEIN,URINE Negative (NEGATIVE); UGLUCOSE 250 MG/DL mg/dL (NEGATIVE); UROBILINOGEN,URINE 0.2 EU/dL (0.2)
--- NOTE | 2016-10-09 23:04 | NUR ---
MD BROOKS IS SPEAKING WITH MD LINDO FOR ADMISSION
--- NOTE | 2016-10-09 23:10 | NUR ---
GAGE RN AT BEDSIDE FOR PSYCH EVAL.
--- NOTE | 2016-10-09 23:35 | NUR ---
REPORT JAZMIN SPAULDING FOR NIKA.
[2016-10-09 23:59] VITALS: BP 147/63
[2016-10-10] MEDS ORDERED: INSU3INS6 SUBCUT
[2016-10-10] MEDS ORDERED: MIRT15TA7 PO
[2016-10-10] MEDS ORDERED: FLUO10CA26 PO
--- NOTE | 2016-10-10 00:08 | NUR ---
report given to mary for david. pt was transported to [facility] bed my EMT
--- NOTE | 2016-10-10 00:45 | NUR ---
MS RN NOTE: RECEIVED PATIENT FROM ER, NO ACUTE DISTRESS NOTED. BREATHING EVEN AND UNLABORED, NO SOB NOTED. IV TO LEFT WRIST IN PLACE. PATIENT CALM AND COOPERATIVE AT THIS TIME. ORIENTED PATIENT TO ROOM AND USE OF CALL LIGHT. BED LOCKED AND IN LOWEST POSITION, CALL LIGHT IN REACH. WILL CONTINUE TO MONITOR.
[2016-10-10] MEDS ORDERED: IV NS 0.9% 1,000 ML IV PRN (02:28)
[2016-10-10] MEDS ORDERED: ZOLPIDEM TARTRATE 5 MG TABLET PO PRN (02:30)
[2016-10-10] MEDS ORDERED: ACETAMINOPHEN 325 MG TABLET PO PRN (02:30)
[2016-10-10] MEDS ORDERED: ONDANSETRON HCL/PF 4 MG/2 ML VIAL IVP PRN (02:30)
[2016-10-10] MEDS ORDERED: MAG HYDROX/AL HYDROX/SIMETH 30 ML UDC PO PRN (02:30)
[2016-10-10] MEDS ORDERED: MAGNESIUM HYDROXIDE 30 ML UDC PO PRN (02:30)
[2016-10-10] MEDS ORDERED: Z GUARD REMEDY 2 OZ OINT TP PRN (02:30)
[2016-10-10] MEDS ORDERED: HYDROCODONE/APAP 5/325MG 1 EACH TABLET PO PRN (02:30)
[2016-10-10] MEDS ORDERED: DEXTROSE 50%-WATER 50 ML DISP.SYRIN IV PRN ×2 (03:00→12:00)
[2016-10-10] MEDS ORDERED: INSULIN REGULAR, HUMAN 100 UNIT/ML 3 ML VIAL SQ PRN (03:00)
--- NOTE | 2016-10-10 06:07 | NUR ---
MS RN NOTE: PATIENT RESTING IN BED, NO ACUTE DISTRESS NOTED. BREATHING EVEN AND UNLABORED, NO SOB NOTED. IV TO LEFT WRIST IN PLACE, INFUSING NS AT 75 ML/HR. PATIENT CALM AND COOPERATIVE AT THIS TIME. SITTER AT BEDSIDE. BED LOCKED AND IN LOWEST POSITION, CALL LIGHT IN REACH. WILL ENDORSE TO DAY NURSE TO CONTINUE WITH PLAN OF CARE.
--- NOTE | 2016-10-10 07:15 | NUR ---
ms rn initial notes Received patient in bed, asleep, head of bed elevated, no SOB or distress noted. On room air and tolerated well. Alert and oriented x 2. On 5150 72hr hold. IV intact and patent with IVF infusing well. Blood sugar checked by cnc machinist 2nd shift 209 medication not verified by the pharmacy yet. Sitter at bedside for constant monitoring. Kept patient clean and comfortable in bed, call light with in patient reach, will continue to monitor accordingly.
[2016-10-10] MEDS ORDERED: BLOOD SUGAR DIAGNOSTIC 1 EACH STRIP IN SCH (07:30)
[2016-10-10] MEDS ORDERED: PANTOPRAZOLE 40 MG TABLET.DR PO SCH (07:30)
[2016-10-10 08:00] VITALS: BP 133/74
--- NOTE | 2016-10-10 12:00 | NUR ---
ms rn notes blood sugar checked 154 2 units given. Will continue to monitor accordingly.
[2016-10-10] MEDS: BLOOD SUGAR DIAGNOSTIC 1 EACH STRIP VI SCH ×3 (13:34→21:40)
[2016-10-10] MEDS: INSULIN REGULAR, HUMAN 100 UNIT/ML 3 ML VIAL SQ PRN ×3 (13:35→16:46)
[2016-10-10 16:00] VITALS: BP 146/78
[2016-10-10] MEDS: METOPROLOL TARTRATE 25 MG TABLET PO SCH (16:41)
--- NOTE | 2016-10-10 16:47 | NUR ---
ms rn notes blood sugar checked 197 3 units given will continue to monitor accordingly.
[2016-10-10] MEDS ORDERED: OXYBUTYNIN CHLORIDE 5 MG TABLET PO SCH (17:00)
--- NOTE | 2016-10-10 19:11 | NUR ---
ms rn closing notes All needs provided, attended, and anticipated. Kept patient clean and comfortable in bed, call light with in patient reach, endorsed to next shift RN to continue care.
--- NOTE | 2016-10-10 19:20 | NUR ---
MS RN INITIAL NOTE PT RECEIVED IN NO ACUTE DISTRESS. A/O X2 BUT ABLE TO MAKE NEEDS KNOWN/ASSIST WITH MOVEMENTS. ON RA WITH 02 SATURATION OF 96% WITH ADEQUATE CHEST RISE/FALL. SITTER IS AT BEDSIDE ASSISTING WITH CARE SINCE PT IS ON A HOLD (4090) 10/09/16-10/12/16. PT HAS A LEFT WRIST IV 20G THAT IS CLEAN DRY AND INTACT. SKIN IS INTACT. WILL CONTINUE TO MONITOR FOR ANY CHANGES.
[2016-10-10 20:00] VITALS: BP 128/68
[2016-10-10] MEDS: MEMANTINE HCL 5 MG TABLET PO SCH (21:34)
[2016-10-10] MEDS: MIRTAZAPINE 15 MG TABLET PO SCH (21:34)
[2016-10-10] MEDS: ATORVASTATIN 40 MG TABLET PO SCH (21:34)
[2016-10-10] MEDS: INSULIN DETEMIR 100 UNIT/ML CARTRIDGE SQ SCH (21:45)
[2016-10-10] MEDS: *INSULIN REGULAR(HUMULIN R)HUM 100 UNIT/ML VIAL SQ PRN (21:47)
[2016-10-11 04:25] VITALS: BP 163/79
[2016-10-11 05:00] VITALS: BP 163/79
--- NOTE | 2016-10-11 06:26 | NUR ---
MR RN CLOSING NOTE PT REMAINS IN NO ACUTE DISTRESS. PT SLEPT FOR 5-6 HOURS DURING THE NIGHT. SITTER AT BEDSIDE DUE TO 5150 STATUS WHICH ENDS ON 10/12/16. ON RA WITH 02 SATURATION WNL. IV LINE ON LEFT WRIST 20 G IS CLEAN PATENT. PT WALKED WITH ASSISTANCE FROM SITTER TO BATHROOM MULTIPLE TIMES. PT IS CLEAN AND COMFORTABLE IN BED IN NO DISTRESS. SAFETY AND COMFORT MEASURES ENSURED DURING THE SHIFT. WILL ENDORSE CARE TO AM NURSE.
[2016-10-11 06:56] LABS: BASOPHILS % (AUTO) 0.2 % (0.0-2.0); EOSINOPHILS % (AUTO) 0.5 % (0.0-6.0); HEMATOCRIT 39 % (33-45); HEMOGLOBIN 13.1 g/dL (11.5-14.8); LYMPHOCYTES # (AUTO) 1.7 /CMM (0.8-4.8); LYMPHOCYTES % (AUTO) 34.5 % (20.0-44.0); MEAN CORPUSCULAR HEMOGLOBIN 31 PG (26.0-33.0); MEAN CORPUSCULAR HGB CONC 34 g/dl (31.0-36.0); MEAN CORPUSCULAR VOLUME 92 fL (82-100); MONOCYTES # (AUTO) 1.2 /CMM (0.1-1.30); NEUTROPHILS # (AUTO) 2.1 /CMM (1.8-8.9); NEUTROPHILS % (AUTO) 40.8 % (43.0-81.0); PLATELET COUNT (AUTO) 189 /CMM (150-450); RDW COEFFICIENT OF VARIATION 12.5 (11.5-15.0); WHITE BLOOD COUNT (AUTO) 5.1 K/uL (4.3-11.0)
[2016-10-11 07:18] LABS: CHOLESTEROL 125 mg/dL (<200); HDL CHOLESTEROL 38 mg/dL (40-60); LDL 72 mg/dL (0-99); TRIGLYCERIDES 71 mg/dL (30-150)
[2016-10-11 07:19] LABS: ALANINE AMINOTRANSFERASE 26 U/L (12-78); ALBUMIN 3.1 g/dL (3.4-5.0); ALKALINE PHOSPHATASE 82 U/L (46-116); ASPARTATE AMINOTRANSFERASE 17 U/L (15-37); BILIRUBIN,TOTAL 0.5 mg/dL (0.2-1.0); CARBON DIOXIDE 30 mmol/L (21-32); CHLORIDE 107 mmol/L (98-107); CREATININE 0.8 mg/dL (0.6-1.3); GLUCOSE 135 mg/dL (74-106); MAGNESIUM 1.7 mg/dL (1.8-2.4); PHOSPHORUS 3.3 mg/dL (2.5-4.9); POTASSIUM 3.8 mmol/L (3.5-5.1); SODIUM SERUM 143 mmol/L (136-145); TOTAL PROTEIN, SERUM 6.6 g/dL (6.4-8.2); UREA NITROGEN, BLOOD 15 mg/dL (7-18)
--- NOTE | 2016-10-11 07:32 | NUR ---
MS RN INITIAL NOTE PT RECEIVED IN NO ACUTE DISTRESS. A/O X2 ABLE TO MAKE NEEDS KNOWN. PT ON RA WITH 02 SATURATION OF 97% . SITTER IS AT BEDSIDE ASSISTING WITH CARE. PT CURRENTLY ON A HOLD (8202) 10/09/16-10/12/16. PT HAS A LEFT WRIST IV 20G THAT IS CLEAN DRY AND INTACT. SKIN IS INTACT. WILL CONTINUE TO MONITOR FOR ANY CHANGES.
[2016-10-11 07:47] LABS: BAND % (MANUAL) 3 % (0.0-5.0); EOSINOPHILS % (MANUAL) 2 % (0-4); LYMPHOCYTES % (MANUAL) 28 % (16-48); MONOCYTES % (MANUAL) 21 % (0-11.0); NEUTROPHILS % (MANUAL) 46 (42-76)
[2016-10-11] MEDS: MECLIZINE HCL 25 MG TABLET PO SCH (08:12)
[2016-10-11] MEDS: NIFEdipine XL (30MG) 30 MG TAB PO SCH (08:12)
[2016-10-11] MEDS: OXYBUTYNIN CHLORIDE 5 MG TABLET PO SCH ×2 (08:12→18:22)
[2016-10-11] MEDS: Fluoxetine 10 mg capsule PO SCH (08:12)
[2016-10-11] MEDS: LOSARTAN POTASSIUM 50 MG TABLET PO SCH (08:12)
[2016-10-11] MEDS: PANTOPRAZOLE 40 MG TABLET.DR PO SCH (08:13)
[2016-10-11] MEDS: METOPROLOL TARTRATE 25 MG TABLET PO SCH ×2 (08:13→18:22)
[2016-10-11] MEDS: BLOOD SUGAR DIAGNOSTIC 1 EACH STRIP VI SCH ×4 (08:27→21:20)
[2016-10-11] MEDS: *INSULIN REGULAR(HUMULIN R)HUM 100 UNIT/ML VIAL SQ PRN ×3 (08:27→21:22)
[2016-10-11] MEDS ORDERED: NIFEdipine XL (30MG) 30 MG TAB PO SCH (09:00)
[2016-10-11] MEDS ORDERED: Fluoxetine 10 mg capsule PO SCH (09:00)
[2016-10-11] MEDS ORDERED: MECLIZINE HCL 25 MG TABLET PO SCH (09:00)
[2016-10-11] MEDS: Magnesium 1GM/D5W 100ML PREMIX 100 ML IV SCH ×2 (12:01→13:16)
--- NOTE | 2016-10-11 15:49 | NUR ---
RN note Late medication administration due to technical difficult with [employer] machine . RN contacted pharmacy and was told to contact [employer] technicians to fix the issue
[2016-10-11] MEDS: MEMANTINE HCL 5 MG TABLET PO SCH ×2 (18:21→21:23)
[2016-10-11] MEDS: SERTRALINE HCL 25 MG TABLET PO SCH (18:21)
--- NOTE | 2016-10-11 19:00 | NUR ---
ms rn closing notes All needs provided, attended, and anticipated. Kept patient clean and comfortable in bed, call light with in patient reach, endorsed to PM shift RN to continue care.
--- NOTE | 2016-10-11 19:39 | NUR ---
MS TEODORO INITIAL NOTES RECEIVED REPORT FROM AM NURSE AND CHECKED THE PT,SEEN SITTING ON HER BED WHILE WATCHING TV AT THIS TIME. DENIES ANY PAIN OR ANY DISCOMFORT, NO AGITATION NOTED. RE-ORIENTED WHERE SHE AT. HEPLOCK PATENT AND INTACT. KEPT HER WARM AND COMFORTABLE AT ALL TIMES. WILL CONTINUE CLOSELY MONITORING.
[2016-10-11 19:45] VITALS: BP 101/52
[2016-10-11] MEDS ORDERED: QUETIAPINE FUMARATE 25 MG TABLET PO SCH (20:00)
[2016-10-11 21:18] VITALS: BP 101/52
[2016-10-11] MEDS: INSULIN DETEMIR 100 UNIT/ML CARTRIDGE SQ SCH (21:23)
[2016-10-11] MEDS: ATORVASTATIN 40 MG TABLET PO SCH (21:24)
[2016-10-11] MEDS: MIRTAZAPINE 15 MG TABLET PO SCH (21:24)
--- NOTE | 2016-10-11 21:30 | NUR ---
ASSISTANT DIRECTOR OF FINANCIAL AID NOTES' ROUTINE MEDS GIVEN AND BLOOD SUGAR CHECKED DONE 214, 14 UNITS OF LEVEMIR AND 4 UNITS OF INSULIN GIVEN ENEIDA SQ ORDERED, SNACKS ALSO SERVED, NO SIGNS OF HYPERGLYCEMIA NOTED. WILL CONTINUE CLOSELY MONITORING . PT STILL ON HOLD 5150 STARTE10/09 TO AT 10/12 AT 22:50.
--- NOTE | 2016-10-12 | NUR ---
STITCH BONDING MACHINE DRAWER IN/NOTES PT RESTING AT THIS TIME, NOT IN ANY ACUTE DISTRESS NOTED. KEPT HER WARM AND COMFORTABLE AT ALL TIMES. WILL CONTINUE CLOSELY MONITORING.
[2016-10-12 06:00] VITALS: BP 129/79
[2016-10-12] MEDS: BLOOD SUGAR DIAGNOSTIC 1 EACH STRIP VI SCH ×2 (06:21→12:00)
[2016-10-12] MEDS: INSULIN REGULAR, HUMAN 100 UNIT/ML 3 ML VIAL SQ PRN ×2 (06:35→12:04)
[2016-10-12 06:54] LABS: CALCIUM, SERUM 8.9 mg/dL (8.5-10.1); CARBON DIOXIDE 29 mmol/L (21-32); CHLORIDE 105 mmol/L (98-107); CREATININE 0.9 mg/dL (0.6-1.3); GLUCOSE 233 mg/dL (74-106); MAGNESIUM 1.9 mg/dL (1.8-2.4); POTASSIUM 4.1 mmol/L (3.5-5.1); SODIUM SERUM 140 mmol/L (136-145); UREA NITROGEN, BLOOD 14 mg/dL (7-18)
--- NOTE | 2016-10-12 07:06 | NUR ---
MS AUTOMOBILE TAILLIGHT ASSEMBLER CLOSING NOTES PT PT WOKE UP AND ASSISTED HER TO DO HER MORNING CARE ROUTINE. BLOOD SUGAR CHECKED ALSO 213, 6 UNITS OF INSULIN GIVEN ENEIDA SQ ORDERED. NO SIGNS OF HYPER GLYCEMIA NOTED. ALL DUE MEDS GIVEN AND ALL NEEDS MET. STABLE ENEIDA THE NIGHT AND NO SIGNS OF ANY AGITATION NOTED. ENDORSED TO AM NURSE FOR CONTINUITY OF CARE. SITTER AT THE BEDSIDE FOR SAFETY. PT STILL ON HOLD TODAY AT 2200 .
--- NOTE | 2016-10-12 07:51 | NUR ---
MS RN INITIAL NOTE PT RECEIVED IN NO ACUTE DISTRESS. A/O X2 WITH DOME CONFUSION NOTED ABLE TO MAKE NEEDS KNOWN. PT ON RA WITH 02 SATURATION OF 100% . SITTER IS AT BEDSIDE ASSISTING WITH CARE. PT CURRENTLY ON A HOLD (2788) 10/09/16-10/12/16. PT HAS A LEFT WRIST IV 20G THAT IS CLEAN DRY AND INTACT. SKIN IS INTACT. WILL CONTINUE TO MONITOR FOR ANY CHANGES.
[2016-10-12 08:00] VITALS: BP 114/68
[2016-10-12] MEDS: MECLIZINE HCL 25 MG TABLET PO SCH (08:48)
[2016-10-12] MEDS: OXYBUTYNIN CHLORIDE 5 MG TABLET PO SCH (08:48)
[2016-10-12] MEDS: MEMANTINE HCL 5 MG TABLET PO SCH (08:49)
[2016-10-12] MEDS: SERTRALINE HCL 25 MG TABLET PO SCH (08:49)
[2016-10-12] MEDS: LOSARTAN POTASSIUM 50 MG TABLET PO SCH (08:49)
[2016-10-12] MEDS: NIFEdipine XL (30MG) 30 MG TAB PO SCH (08:49)
[2016-10-12] MEDS: Fluoxetine 10 mg capsule PO SCH (08:49)
[2016-10-12 08:50] VITALS: BP 114/68
[2016-10-12] MEDS: METOPROLOL TARTRATE 25 MG TABLET PO SCH (08:50)
[2016-10-12] MEDS: PANTOPRAZOLE 40 MG TABLET.DR PO SCH (08:55)
--- NOTE | 2016-10-12 12:12 | NUR ---
Rn note Rn spoke Syed SEMI CONDUCTOR ASSEMBLER , in regards to the patients current Medical state patient is medically cleared to be released per SEMI CONDUCTOR ASSEMBLER. RN CONTACTED DR DON OFFICE TO CLARIFY IF THE PATIENT WILL BE SENT TO GPS OR TO THE SNF. DISCHARGE PENDING MD RESPONSE . CHARGE NURSE AND NURSE MOLDER HELPER NOTIFIED.
== END 2016-10-12 16:00 | DRG 885 ==
LOC: ER 20:16 → MEDSG1 23:42
PROVIDERS: ADMIT Internal Medicine; ATTEND Internal Medicine
DX: F29 Unspecified psychosis not due to a substance or known physiological condition (principal); F02.81 Dementia in other diseases classified elsewhere, unspecified severity, with behavioral disturbance; F23 Brief psychotic disorder; F33.3 Major depressive disorder, recurrent, severe with psychotic symptoms; E11.22 Type 2 diabetes mellitus with diabetic chronic kidney disease; F41.9 Anxiety disorder, unspecified; I12.9 Hypertensive chronic kidney disease with stage 1 through stage 4 chronic kidney disease, or unspecified chronic kidney disease; I25.10 Atherosclerotic heart disease of native coronary artery without angina pectoris; K21.9 Gastro-esophageal reflux disease without esophagitis; N18.9 Chronic kidney disease, unspecified; Z95.1 Presence of aortocoronary bypass graft; Z79.84 Long term (current) use of oral hypoglycemic drugs; Z79.899 Other long term (current) drug therapy; E78.5 Hyperlipidemia, unspecified; E11.65 Type 2 diabetes mellitus with hyperglycemia; Z73.6 Limitation of activities due to disability; G30.9 Alzheimer's disease, unspecified
CPT/HCPCS: 36415; 71010-TC; 80048-TC; 80053-TC; 80061-TC; 80076-TC; 80305; 81000-TC; 82962-TC; 83735-TC; 84100-TC; 85025-TC; 87081-TC; 93307-TC; 97001-TC; A4606; G0480; J1815; J3475; J7030; J8597; Z7610

== ENCOUNTER 2016-10-12 13:14 | Inpatient (IN) | payer MEDICARE, MEDICAID ==
[~2016-10-12] VITALS: Ht 165.1 cm; Wt 78.0 kg
[~2016-10-12 13:14] MED LIST changes: +FLUO10CA26 PO; +INSU3INS6 SUBCUT; +MIRT15TA7 PO
--- NOTE | 2016-10-12 15:00 | NUR ---
[id number]: PT IS 86 YEARS OLD FEMALE ADMITTED ON 525 FOR AGGRESSIVE BEHAVIOR, UNABLE TO CARE FOR SELF. PT IS CALM AND COOPERATIVE WITH STAFF UPON [id number] ASSESSMENT. PT APPEARS WITH MILD DEPRESSION. PT HAS HTN, DM, DYSLIPIDEMIA, CAD, SINUS. ESCORTED PT AROUND THE UNIT TO GET FAMILIARIZED. PROVIDED PT'S RIGHT BOOKLET AND ENCOURAGE PT TO ASK QUESTIONS. DISCUSS MEAL TIMES, GROUP ACTIVITY SCHEDULED. BELONGINGS STORED AND DOCUMENTED. DR. BEARDEN AND DR. DON NOTIFIED. ENCOURAGE TO VERBALIZE FEELINGS AND ASK FOR HELP. MRSA DONE. NOTIFIED FAMILY. ALL PAPERWORK AND COMPUTER DOCUMENTATION DONE. WILL ENDORSE TO INCOMING NURSE TO DOUBLE CHECK ALL PAPERWORK AND COMPUTER DOCUMENTATION.
--- NOTE | 2016-10-12 15:00 | NUR ---
financial planning consultant note patient discharge information reviewed and given to patient , rn reviewed all orders pt verbalized understanding . patient understands move to [facility]. orders review with patient daughter over the phone. pt stable, iv remove , no complaint from patient or family . charge nurse notified . patient transferred to psych unit without issue.
[2016-10-12] MEDS ORDERED: LORAZEPAM 0.5 MG TABLET PO PRN (15:30)
[2016-10-12] MEDS ORDERED: ACETAMINOPHEN 325 MG TABLET PO PRN (15:30)
[2016-10-12] MEDS ORDERED: MAGNESIUM HYDROXIDE 30 ML UDC PO PRN (15:30)
--- NOTE | 2016-10-12 15:43 | NUR ---
RN-CO: DR BEARDEN WAS NOTIFIED OF THIS ADMISSION AND ASKED TO RECONCILE HOME MEDS.
[2016-10-12 16:13] VITALS: BP 114/59
[2016-10-12 20:08] VITALS: BP 115/69
[2016-10-12] MEDS: ATORVASTATIN 40 MG TABLET PO SCH (21:37)
[2016-10-12] MEDS: MEMANTINE HCL 5 MG TABLET PO SCH (21:37)
[2016-10-12] MEDS: BLOOD SUGAR DIAGNOSTIC 1 EACH STRIP IN SCH (21:51)
--- NOTE | 2016-10-12 21:56 | NUR ---
GPS RN NOTES AT 0, PT. BS 206, NOTIFIED MD OF PT. BS SUGAR NO NEW ORDERS RECEIVED,
--- NOTE | 2016-10-13 06:37 | NUR ---
RN GPS NOTE PT .REMAINED IN STABLE CONDITION RESTING IN HER BED ,NO ACUTE DISTRESS NOTED ATTENDED ALL NEEDS AND ANTICIPATED , DENIES SI/ HI AT THIS TIME, ENDORSE TO NEXT SHIFT NURSE. WILL ENDORSE TO NEXT SHIFT FOR CONTINUITY OF CARE
[2016-10-13 07:49] LABS: ALANINE AMINOTRANSFERASE 36 U/L (12-78); ALBUMIN 3.6 g/dL (3.4-5.0); ALKALINE PHOSPHATASE 94 U/L (46-116); ASPARTATE AMINOTRANSFERASE 22 U/L (15-37); BILIRUBIN,TOTAL 0.6 mg/dL (0.2-1.0); CALCIUM, SERUM 9.1 mg/dL (8.5-10.1); CARBON DIOXIDE 28 mmol/L (21-32); CHLORIDE 104 mmol/L (98-107); CREATININE 0.8 mg/dL (0.6-1.3); GLUCOSE 257 mg/dL (74-106); POTASSIUM 4.6 mmol/L (3.5-5.1); SODIUM SERUM 139 mmol/L (136-145); TOTAL PROTEIN, SERUM 7.5 g/dL (6.4-8.2); UREA NITROGEN, BLOOD 12 mg/dL (7-18)
[2016-10-13 08:00] VITALS: BP 146/63
[2016-10-13 08:20] LABS: CHOLESTEROL 136 mg/dL (<200); HDL CHOLESTEROL 39 mg/dL (40-60); LDL 80 mg/dL (0-99); TRIGLYCERIDES 84 mg/dL (30-150)
[2016-10-13] MEDS ORDERED: BLOOD SUGAR DIAGNOSTIC 1 EACH STRIP IN SCH (09:00)
[2016-10-13] MEDS ORDERED: Fluoxetine 10 mg capsule PO SCH (09:00)
[2016-10-13] MEDS: glipiZIDE 10 MG TABLET PO SCH ×2 (09:32→18:04)
[2016-10-13] MEDS: NIFEdipine XL (30MG) 30 MG TAB PO SCH (09:33)
[2016-10-13] MEDS: LOSARTAN POTASSIUM 50 MG TABLET PO SCH (09:33)
[2016-10-13] MEDS: BLOOD SUGAR DIAGNOSTIC 1 EACH STRIP IN SCH ×4 (09:34→22:23)
[2016-10-13] MEDS: OXYBUTYNIN CHLORIDE 5 MG TABLET PO SCH ×2 (09:34→18:04)
--- NOTE | 2016-10-13 10:13 | NUR ---
GPS FLOAT RN NOTES PT.'S AM BLOOD SUGAR WAS 280. DR. BEARDEN WAS CALLED IN REGARDS TO COVERAGE. PER DR BEARDEN " ORDER A ONE TIME DOES OF LEVEMIR 8 UNITS AND ADD A MODERATED INSULIN SLIDING SCALE". WILL CARRY OUT ORDERS AND CONTINUE TO MONITOR PT. FOR S/S OF HYPER/HYPOGLYCEMIA
[2016-10-13] MEDS ORDERED: DEXTROSE 50%-WATER 50 ML DISP.SYRIN IV PRN (10:30)
[2016-10-13] MEDS ORDERED: INSULIN DETEMIR 100 UNIT/ML CARTRIDGE SQ ONE (10:30)
[2016-10-13] MEDS: INSULIN REGULAR, HUMAN 100 UNIT/ML 3 ML VIAL SQ PRN ×2 (12:28→18:06)
[2016-10-13] MEDS: BENZTROPINE MESYLATE (1 MG) 1 MG TABLET PO SCH ×2 (12:30→18:04)
[2016-10-13] MEDS: HALOPERIDOL 1 MG TABLET PO SCH ×2 (13:00→18:04)
[2016-10-13] MEDS: DIVALPROEX SODIUM 125 MG CAP.SPRINK PO SCH ×2 (13:00→21:36)
--- NOTE | 2016-10-13 13:54 | NUR ---
GPS FLOAT RN NOTES PER DR. BEARDEN "CONTINUE PT'S HOME MEDICATION OF LEVEMIR 14 UNITS QAM". MEDICATION WAS HELD LAST NIGHT, BECAUSE PT. WAS JUST ADMITTED AND DID NOT EAT.
--- NOTE | 2016-10-13 15:10 | NUR ---
Initial discharge plan: [facility] [address] [facility] [address] [facility] [address] and wants to return when discharged. SW will follow up with daughter, Mima [phone] and will help arrange a safe and proper discharge.
[2016-10-13 16:37] VITALS: BP 129/74
[2016-10-13] MEDS ORDERED: MIRTAZAPINE 15 MG TABLET PO SCH (18:00)
[2016-10-13 20:00] VITALS: BP 128/70
[2016-10-13] MEDS: MEMANTINE HCL 5 MG TABLET PO SCH (21:36)
[2016-10-13] MEDS: ATORVASTATIN 40 MG TABLET PO SCH (21:36)
--- NOTE | 2016-10-14 06:42 | NUR ---
RN GPS NOTE PT IN BED, COMFORTABLY RESTING AT THIS TIME. NO ACUTE DISTRESS NOTED, ALL NEEDS ATTENDED AND ANTICIPATED , DENIES SI/ HI. SAFETY PRECAUTIONS OBSERVED. WILL ENDORSE TO NEXT SHIFT FOR CONTINUITY OF CARE .
[2016-10-14] MEDS: BLOOD SUGAR DIAGNOSTIC 1 EACH STRIP IN SCH ×4 (07:30→22:35)
[2016-10-14 07:38] LABS: BASOPHILS % (AUTO) 0.1 % (0.0-2.0); EOSINOPHILS % (AUTO) 0.3 % (0.0-6.0); HEMATOCRIT 41 % (33-45); HEMOGLOBIN 13.6 g/dL (11.5-14.8); LYMPHOCYTES # (AUTO) 1.6 /CMM (0.8-4.8); LYMPHOCYTES % (AUTO) 30.2 % (20.0-44.0); MEAN CORPUSCULAR HEMOGLOBIN 31 PG (26.0-33.0); MEAN CORPUSCULAR HGB CONC 34 g/dl (31.0-36.0); MEAN CORPUSCULAR VOLUME 92 fL (82-100); MONOCYTES # (AUTO) 1.1 /CMM (0.1-1.30); MONOCYTES % (AUTO) 20.1 % (2.0-12.0); NEUTROPHILS # (AUTO) 2.6 /CMM (1.8-8.9); NEUTROPHILS % (AUTO) 49.3 % (43.0-81.0); PLATELET COUNT (AUTO) 178 /CMM (150-450); RDW COEFFICIENT OF VARIATION 12.6 (11.5-15.0); RED BLOOD CELL COUNT(AUTO) 4.39 MIL/uL (4.0-5.2); WHITE BLOOD COUNT (AUTO) 5.3 K/uL (4.3-11.0)
--- NOTE | 2016-10-14 07:45 | NUR ---
RN NOTES REPORT RECEIVED AT THE BEDSIDE. PATIENT RESTING COMFORTABLY IN BED. NO SOB OR DISTRESS NOTED AT THIS TIME. PATIENT DENIES PAIN. PATIENT HAS ALREADY EATEN PRIOR TO BEING ABLE TO OBTAIN A BLOOD SUGAR. WILL HOLD MORNING INSULIN LEVEL WILL NOT BE ACCURATE. WILL CHECK SUGAR TO CHECK FOR HYPOGLYCEMIA AND ADMINISTER LEVAMIR ORDERED.
[2016-10-14 07:52] LABS: CALCIUM, SERUM 9.2 mg/dL (8.5-10.1); CARBON DIOXIDE 27 mmol/L (21-32); CHLORIDE 106 mmol/L (98-107); CREATININE 0.8 mg/dL (0.6-1.3); GLUCOSE 139 mg/dL (74-106); MAGNESIUM 1.7 mg/dL (1.8-2.4); PHOSPHORUS 3.2 mg/dL (2.5-4.9); POTASSIUM 3.8 mmol/L (3.5-5.1); SODIUM SERUM 141 mmol/L (136-145); UREA NITROGEN, BLOOD 12 mg/dL (7-18)
[2016-10-14 08:00] VITALS: BP 131/75
[2016-10-14 08:02] LABS: IRON, SERUM 60 ug/dl (50-175); TOTAL IRON BINDING CAPACITY 328 ug/dl (250-450)
[2016-10-14 08:15] LABS: THYROID STIMULATING HORMONE 1.394 uIU/mL (0.358-3.74)
[2016-10-14] MEDS: HALOPERIDOL 1 MG TABLET PO SCH ×2 (09:18→17:07)
[2016-10-14] MEDS: glipiZIDE 10 MG TABLET PO SCH ×2 (09:19→17:06)
[2016-10-14] MEDS: LOSARTAN POTASSIUM 50 MG TABLET PO SCH (09:19)
[2016-10-14] MEDS: OXYBUTYNIN CHLORIDE 5 MG TABLET PO SCH ×2 (09:19→17:07)
[2016-10-14] MEDS: NIFEdipine XL (30MG) 30 MG TAB PO SCH (09:19)
[2016-10-14] MEDS: BENZTROPINE MESYLATE (1 MG) 1 MG TABLET PO SCH ×2 (09:19→17:07)
[2016-10-14] MEDS: DIVALPROEX SODIUM 125 MG CAP.SPRINK PO SCH ×2 (09:19→22:09)
[2016-10-14] MEDS: INSULIN DETEMIR 100 UNIT/ML CARTRIDGE SQ SCH ×2 (09:22→22:00)
[2016-10-14 09:23] LABS: LYMPHOCYTES % (MANUAL) 26 % (16-48); MONOCYTES % (MANUAL) 18 % (0-11.0); NEUTROPHILS % (MANUAL) 56 (42-76)
[2016-10-14 10:00] VITALS: BP 131/75
[2016-10-14] MEDS ORDERED: MAGNESIUM OXIDE 400 MG TABLET PO ONE (11:30)
[2016-10-14] MEDS: INSULIN REGULAR, HUMAN 100 UNIT/ML 3 ML VIAL SQ PRN ×2 (12:01→17:08)
--- NOTE | 2016-10-14 15:36 | NUR ---
SW met with the patient regarding a placement option but pt. wants to return back to the facility where she was residing, [facility] [address] [address] [place] [facility] [address] . GLORIA will follow up.
--- NOTE | 2016-10-14 15:45 | NUR ---
Recreation Therapist Documentation Addendum: 10/14/16 at 1545 by ROBIN SEGURA REC Amended: Links added.
[2016-10-14 16:00] VITALS: BP 158/76
[2016-10-14 20:00] VITALS: BP 110/65
[2016-10-14] MEDS: MEMANTINE HCL 5 MG TABLET PO SCH (22:09)
[2016-10-14] MEDS: ATORVASTATIN 40 MG TABLET PO SCH (22:09)
[2016-10-15] MEDS: BLOOD SUGAR DIAGNOSTIC 1 EACH STRIP IN SCH ×4 (07:38→22:40)
--- NOTE | 2016-10-15 07:38 | NUR ---
RN-CO: BLOOD SUGAR BEFORE BREAKFAST WAS 125, NO COVERAGE.
[2016-10-15 08:00] VITALS: BP 118/72
[2016-10-15] MEDS: HALOPERIDOL 1 MG TABLET PO SCH ×2 (08:11→17:11)
[2016-10-15] MEDS: LOSARTAN POTASSIUM 50 MG TABLET PO SCH (08:12)
[2016-10-15] MEDS: NIFEdipine XL (30MG) 30 MG TAB PO SCH (08:12)
[2016-10-15] MEDS: glipiZIDE 10 MG TABLET PO SCH ×2 (08:12→17:10)
[2016-10-15] MEDS: BENZTROPINE MESYLATE (1 MG) 1 MG TABLET PO SCH ×2 (08:12→17:11)
[2016-10-15] MEDS: OXYBUTYNIN CHLORIDE 5 MG TABLET PO SCH ×2 (08:12→17:11)
[2016-10-15] MEDS: INSULIN DETEMIR 100 UNIT/ML CARTRIDGE SQ SCH ×2 (08:21→22:48)
--- NOTE | 2016-10-15 09:56 | NUR ---
RN-CP: Called pharmacist tech to refill Depakote in the [employer]. Still not there. Called them again.
[2016-10-15] MEDS: DIVALPROEX SODIUM 125 MG CAP.SPRINK PO SCH ×2 (11:16→20:54)
[2016-10-15] MEDS: *INSULIN REGULAR(HUMULIN R)HUM 100 UNIT/ML VIAL SQ PRN ×2 (12:07→22:46)
[2016-10-15 16:00] VITALS: BP 101/65
[2016-10-15 20:00] VITALS: BP 117/71
[2016-10-15] MEDS: TEMAZEPAM 7.5 MG CAPSULE PO PRN (20:54)
[2016-10-15] MEDS: ATORVASTATIN 40 MG TABLET PO SCH (20:54)
[2016-10-15] MEDS: MEMANTINE HCL 5 MG TABLET PO SCH (20:54)
--- NOTE | 2016-10-16 07:30 | NUR ---
RN GPS OPENING NOTE PT IS OUT OF BED, A&OX4. NO SOB, BREATHING ON ROOM AIR. NO ACUTE DISTRESS NOTED, ATTENDED ALL NEEDS AND ANTICIPATED , DENIES SI/ HI AT THIS TIME. PT. IS COOPERATIVE. SAFETY PRECAUTIONS OBSERVED. WILL CONTINUE TO MONITOR. CALL LIGHT IS WITHIN REACH.
[2016-10-16 07:47] LABS: BASOPHILS % (AUTO) 0.3 % (0.0-2.0); EOSINOPHILS % (AUTO) 0.3 % (0.0-6.0); HEMATOCRIT 39 % (33-45); HEMOGLOBIN 13.4 g/dL (11.5-14.8); LYMPHOCYTES % (AUTO) 17.9 % (20.0-44.0); MEAN CORPUSCULAR HEMOGLOBIN 31 PG (26.0-33.0); MEAN CORPUSCULAR HGB CONC 34 g/dl (31.0-36.0); MEAN CORPUSCULAR VOLUME 91 fL (82-100); MONOCYTES # (AUTO) 1.3 /CMM (0.1-1.30); MONOCYTES % (AUTO) 22.5 % (2.0-12.0); NEUTROPHILS # (AUTO) 3.5 /CMM (1.8-8.9); PLATELET COUNT (AUTO) 169 /CMM (150-450); RDW COEFFICIENT OF VARIATION 12.6 (11.5-15.0); RED BLOOD CELL COUNT(AUTO) 4.28 MIL/uL (4.0-5.2); WHITE BLOOD COUNT (AUTO) 5.9 K/uL (4.3-11.0)
[2016-10-16] MEDS: BLOOD SUGAR DIAGNOSTIC 1 EACH STRIP IN SCH ×4 (07:57→21:47)
[2016-10-16 08:00] VITALS: BP 138/76
[2016-10-16] MEDS: INSULIN REGULAR, HUMAN 100 UNIT/ML 3 ML VIAL SQ PRN ×3 (08:01→18:26)
[2016-10-16 08:13] LABS: VALPROIC ACID 43 ug/mL (50-100)
[2016-10-16 08:18] LABS: ALANINE AMINOTRANSFERASE 29 U/L (12-78); ALBUMIN 3.2 g/dL (3.4-5.0); ALKALINE PHOSPHATASE 82 U/L (46-116); ASPARTATE AMINOTRANSFERASE 23 U/L (15-37); BILIRUBIN,TOTAL 0.5 mg/dL (0.2-1.0); CALCIUM, SERUM 9.1 mg/dL (8.5-10.1); CARBON DIOXIDE 30 mmol/L (21-32); CHLORIDE 106 mmol/L (98-107); CREATININE 0.8 mg/dL (0.6-1.3); GLUCOSE 90 mg/dL (74-106); MAGNESIUM 1.9 mg/dL (1.8-2.4); POTASSIUM 3.9 mmol/L (3.5-5.1); SODIUM SERUM 143 mmol/L (136-145); TOTAL PROTEIN, SERUM 6.8 g/dL (6.4-8.2); UREA NITROGEN, BLOOD 14 mg/dL (7-18)
[2016-10-16 09:01] LABS: LYMPHOCYTES % (MANUAL) 23 % (16-48); MONOCYTES % (MANUAL) 7 % (0-11.0); NEUTROPHILS % (MANUAL) 70 (42-76)
[2016-10-16] MEDS: LOSARTAN POTASSIUM 50 MG TABLET PO SCH (09:18)
[2016-10-16] MEDS: NIFEdipine XL (30MG) 30 MG TAB PO SCH (09:18)
[2016-10-16] MEDS: OXYBUTYNIN CHLORIDE 5 MG TABLET PO SCH ×2 (09:19→18:17)
[2016-10-16] MEDS: glipiZIDE 10 MG TABLET PO SCH ×2 (09:19→18:17)
[2016-10-16] MEDS: BENZTROPINE MESYLATE (1 MG) 1 MG TABLET PO SCH ×2 (09:19→18:17)
[2016-10-16] MEDS: DIVALPROEX SODIUM 125 MG CAP.SPRINK PO SCH ×2 (09:19→21:34)
[2016-10-16] MEDS: HALOPERIDOL 1 MG TABLET PO SCH ×2 (09:19→18:17)
[2016-10-16] MEDS: INSULIN DETEMIR 100 UNIT/ML CARTRIDGE SQ SCH ×2 (09:32→23:24)
[2016-10-16] MEDS ORDERED: HALOPERIDOL DECANOATE IM 100 MG/ML AMPUL IM ONE (13:30)
[2016-10-16] MEDS: MAG HYDROX/AL HYDROX/SIMETH 30 ML UDC PO PRN ×2 (15:40→21:35)
[2016-10-16 16:00] VITALS: BP 128/77
--- NOTE | 2016-10-16 18:54 | NUR ---
RN GPS CLOSING NOTE PT IS IN BED SITTING UP COMFORTABLY, A&OX4. NO SOB, BREATHING ON ROOM AIR. NO S/S OF ACUTE DISTRESS NOTED, ATTENDED ALL NEEDS AND ANTICIPATED. SAFETY PRECAUTIONS OBSERVED. WILL CONTINUE TO MONITOR. BED IS IN LOW POSITION, AND CALL LIGHT IS WITHIN REACH. WILL ENDORSE REPORT TO VICE PRESIDENT OF SOFTWARE DEVELOPMENT NURSE.
[2016-10-16 20:00] VITALS: BP 144/92
[2016-10-16] MEDS: ATORVASTATIN 40 MG TABLET PO SCH (21:34)
[2016-10-16] MEDS: MEMANTINE HCL 5 MG TABLET PO SCH (21:34)
[2016-10-16] MEDS: TEMAZEPAM 7.5 MG CAPSULE PO PRN (21:35)
[2016-10-17 08:00] VITALS: BP 142/79
[2016-10-17] MEDS: BLOOD SUGAR DIAGNOSTIC 1 EACH STRIP IN SCH ×4 (08:25→21:23)
[2016-10-17] MEDS: OXYBUTYNIN CHLORIDE 5 MG TABLET PO SCH ×2 (08:25→16:33)
[2016-10-17] MEDS: INSULIN DETEMIR 100 UNIT/ML CARTRIDGE SQ SCH ×2 (08:26→21:26)
[2016-10-17] MEDS: INSULIN REGULAR, HUMAN 100 UNIT/ML 3 ML VIAL SQ PRN ×2 (08:27→12:22)
[2016-10-17] MEDS: BENZTROPINE MESYLATE (1 MG) 1 MG TABLET PO SCH ×2 (08:27→16:33)
--- NOTE | 2016-10-17 08:27 | NUR ---
[id number]: BLOOD SUGAR IS 157 MG/DL AND GAVE 2 UNITS OF REGULAR INSULIN
[2016-10-17] MEDS: DIVALPROEX SODIUM 125 MG CAP.SPRINK PO SCH ×2 (08:28→21:20)
[2016-10-17] MEDS: LOSARTAN POTASSIUM 50 MG TABLET PO SCH (08:28)
[2016-10-17] MEDS: glipiZIDE 10 MG TABLET PO SCH ×2 (08:29→16:33)
[2016-10-17] MEDS: HALOPERIDOL 1 MG TABLET PO SCH ×2 (08:29→16:33)
[2016-10-17] MEDS: NIFEdipine XL (30MG) 30 MG TAB PO SCH (08:30)
--- NOTE | 2016-10-17 12:22 | NUR ---
[id number]: GAVE BLOOD SUGAR IS 153 MG/DL AND GAVE 2 UNITS OF REGULAR INSULIN
[2016-10-17 16:00] VITALS: BP 113/62
--- NOTE | 2016-10-17 16:44 | NUR ---
[id number]: BLOOD SUGAR IS 122 MG/DL AND NO INSULIN REQUIRED AT THIS TIME.
[2016-10-17 20:00] VITALS: BP 114/72
[2016-10-17] MEDS: MEMANTINE HCL 5 MG TABLET PO SCH (21:20)
[2016-10-17] MEDS: ATORVASTATIN 40 MG TABLET PO SCH (21:20)
[2016-10-17] MEDS: TEMAZEPAM 7.5 MG CAPSULE PO PRN (21:20)
--- NOTE | 2016-10-17 21:20 | NUR ---
GPS RN: PATIENT REQUESTED FOR SLEEPING MEDICATION. RESTORIL 7.5 MG GIVEN ORALLY ORDERED. WILL MONITOR PATIENT AND EFFECTIVENESS OF MEDICATION.
[2016-10-17] MEDS: *INSULIN REGULAR(HUMULIN R)HUM 100 UNIT/ML VIAL SQ PRN (21:25)
--- NOTE | 2016-10-18 07:30 | NUR ---
BLOOD SUGAR BEFORE BREAKFAST 90, NO COVERAGE.
[2016-10-18] MEDS: BLOOD SUGAR DIAGNOSTIC 1 EACH STRIP IN SCH ×4 (07:34→21:52)
[2016-10-18 08:00] VITALS: BP 143/79
[2016-10-18] MEDS: glipiZIDE 10 MG TABLET PO SCH ×2 (08:02→16:26)
[2016-10-18] MEDS: NIFEdipine XL (30MG) 30 MG TAB PO SCH (08:04)
[2016-10-18] MEDS: OXYBUTYNIN CHLORIDE 5 MG TABLET PO SCH ×2 (08:04→16:26)
[2016-10-18] MEDS: DIVALPROEX SODIUM 125 MG CAP.SPRINK PO SCH ×2 (08:05→21:51)
[2016-10-18] MEDS: BENZTROPINE MESYLATE (1 MG) 1 MG TABLET PO SCH ×2 (08:05→16:26)
[2016-10-18] MEDS: LOSARTAN POTASSIUM 50 MG TABLET PO SCH (08:05)
[2016-10-18] MEDS: HALOPERIDOL 1 MG TABLET PO SCH ×2 (08:06→16:26)
[2016-10-18] MEDS: INSULIN DETEMIR 100 UNIT/ML CARTRIDGE SQ SCH ×2 (08:10→23:05)
--- NOTE | 2016-10-18 10:37 | NUR ---
SW spoke with pt's daughter, Mima [phone] who requested for pt. to be transferred to a rehab first before returning back to the assisted living. SW notified Mima that the psychiatrist has recommended that also and SW will start the process.
--- NOTE | 2016-10-18 11:04 | NUR ---
Pt. was referred to [facility] [address], [place] [address] . will follow up Addendum: 10/18/16 at 1558 by KAYODE CASTRO Per June from facility, pt is accepted.
--- NOTE | 2016-10-18 11:52 | NUR ---
BLOOD SUGAR BEFORE LUNCH 128, NO COVERAGE.
[2016-10-18 16:13] VITALS: BP 108/55
--- NOTE | 2016-10-18 16:42 | NUR ---
BLOOD SUGAR BEFORE DINNER 89, NO COVERAGE.
[2016-10-18 19:46] VITALS: BP 114/67
[2016-10-18] MEDS: TEMAZEPAM 7.5 MG CAPSULE PO PRN (21:52)
[2016-10-18] MEDS: ATORVASTATIN 40 MG TABLET PO SCH (21:52)
[2016-10-18] MEDS: MEMANTINE HCL 5 MG TABLET PO SCH (21:52)
--- NOTE | 2016-10-19 07:59 | NUR ---
[id number]: BLOOD SUGAR IS 113 MG/DL AND NO INSULIN REQUIRED AT THIS TIME.
[2016-10-19 08:00] VITALS: BP 122/65
[2016-10-19] MEDS: BLOOD SUGAR DIAGNOSTIC 1 EACH STRIP IN SCH ×4 (08:10→21:22)
[2016-10-19] MEDS: DIVALPROEX SODIUM 125 MG CAP.SPRINK PO SCH ×2 (08:10→21:22)
[2016-10-19] MEDS: NIFEdipine XL (30MG) 30 MG TAB PO SCH (08:11)
[2016-10-19] MEDS: BENZTROPINE MESYLATE (1 MG) 1 MG TABLET PO SCH ×2 (08:11→16:19)
[2016-10-19] MEDS: HALOPERIDOL 1 MG TABLET PO SCH ×2 (08:12→16:19)
[2016-10-19] MEDS: LOSARTAN POTASSIUM 50 MG TABLET PO SCH (08:12)
[2016-10-19] MEDS: OXYBUTYNIN CHLORIDE 5 MG TABLET PO SCH ×2 (08:12→16:19)
[2016-10-19] MEDS: glipiZIDE 10 MG TABLET PO SCH ×2 (08:12→16:19)
[2016-10-19] MEDS: INSULIN DETEMIR 100 UNIT/ML CARTRIDGE SQ SCH ×2 (08:20→21:27)
--- NOTE | 2016-10-19 12:15 | NUR ---
[id number]: NOTIFIED DR. DON ABOUT EKG RESULTS. NO NEW ORDERS GIVEN AT THIS TIME.
[2016-10-19] MEDS: INSULIN REGULAR, HUMAN 100 UNIT/ML 3 ML VIAL SQ PRN (12:38)
--- NOTE | 2016-10-19 12:38 | NUR ---
[id number]: BLOOD SUGAR IS 132 MG/DL AND GAVE 2 UNITS OF REGULAR INSULIN
--- NOTE | 2016-10-19 15:37 | NUR ---
SW spoke with pt's daughter, Mima [phone] who agrees with pt's discharge to [facility] [address] [place] [address] . She was notified that pt. has been accepted.
[2016-10-19 16:00] VITALS: BP 123/74
[2016-10-19 20:31] VITALS: BP 115/76
[2016-10-19] MEDS: TEMAZEPAM 7.5 MG CAPSULE PO PRN (21:21)
[2016-10-19] MEDS: MEMANTINE HCL 5 MG TABLET PO SCH (21:21)
[2016-10-19] MEDS: ATORVASTATIN 40 MG TABLET PO SCH (21:21)
[2016-10-20 08:00] VITALS: BP 143/82
[2016-10-20] MEDS: BLOOD SUGAR DIAGNOSTIC 1 EACH STRIP IN SCH ×4 (09:39→21:25)
[2016-10-20] MEDS: BENZTROPINE MESYLATE (1 MG) 1 MG TABLET PO SCH ×2 (09:40→17:51)
[2016-10-20] MEDS: OXYBUTYNIN CHLORIDE 5 MG TABLET PO SCH ×2 (09:41→17:50)
[2016-10-20] MEDS: DIVALPROEX SODIUM 125 MG CAP.SPRINK PO SCH ×2 (09:41→21:31)
[2016-10-20] MEDS: NIFEdipine XL (30MG) 30 MG TAB PO SCH (09:41)
[2016-10-20] MEDS: glipiZIDE 10 MG TABLET PO SCH ×2 (09:41→17:00)
[2016-10-20] MEDS: HALOPERIDOL 1 MG TABLET PO SCH ×2 (09:42→17:50)
[2016-10-20] MEDS: LOSARTAN POTASSIUM 50 MG TABLET PO SCH (09:43)
[2016-10-20] MEDS: INSULIN DETEMIR 100 UNIT/ML CARTRIDGE SQ SCH ×2 (09:44→21:26)
[2016-10-20] MEDS: INSULIN REGULAR, HUMAN 100 UNIT/ML 3 ML VIAL SQ PRN (09:48)
--- NOTE | 2016-10-20 13:00 | NUR ---
blood sugar,s stable,no complaints keeps to self.
--- NOTE | 2016-10-20 15:30 | NUR ---
dtr. antnoio calling rn requesting med records of pt. pt. confused and dtr. states she is not poa-rn spoke with day haul youth supervisor velma and info left for tera soc worker to follow up.release form in chart. dtr. informed med. record office closes at 4 pm today.
--- NOTE | 2016-10-20 15:31 | NUR ---
SW spoke with pt's daughter, Mima [phone] who had questions regarding patient's discharge. Sw answered the daughters questions. Patient's daughter was satisfied with the information given to her. Patient's daughter requested a copy of patient's chart. Sw referred her to medical records. Sw confirmed patient's discharge date and notified patient's daughter who was agreeable with the discharge plan.
[2016-10-20 16:02] VITALS: BP 130/76
--- NOTE | 2016-10-20 18:31 | NUR ---
no change in status.
--- NOTE | 2016-10-20 19:30 | NUR ---
GPS RN NOTE, RECEIVED PATIENT AWAKE AND IN BED, NO S/S OR COMPLAINTS OF PAIN AT THIS TIME. PATIENT IS DISPLAYING NO S/S OF APPARENT DISTRESS AT THIS TIME. PATIENT BREATHING IS UNLABORED WITH EQUAL RISE AND FALL OF THE CHEST. PATIENT IS ALERT AND ORIENTED X 3 ON ROOM AIR WITH A SPO2 97%. PATIENT COMPLAINT WITH MEDICATION, ANXIOUS, COOPERATIVE, CONFUSED AT TIMES, DELUSIONAL, AND NEEDS REORIENTATION. PATIENT DENIES SUICIDE AND HOMICIDAL IDEATIONS AT THIS TIME. PATIENT ASSISTED WITH TURNING AND REPOSITIONING Q2HR AND PRN FOR COMFORT AND CIRCULATION. PATIENT HAS NO NEEDS AT THIS TIME. PATIENT EDUCATED ON THE USE OF THE CALL VU. PATIENT BED SIDE RAILS UP X2 FOR SAFETY, BED IS LOCKED AND LOW WILL CONTINUE TO MONITOR AND MAINTAIN SAFETY.
[2016-10-20 20:39] VITALS: BP 105/59
--- NOTE | 2016-10-20 21:25 | NUR ---
GPS RN NOTE, PERFORMED ACCU CHECK ON PATIENT WITH A BLOOD SUGAR RESULT OF 178. GAVE PATIENT SNACK, REGULAR INSULIN 3UNITS SQ, AND LEVEMIR 6 UNITS SQ ORDERED. WILL CONTINUE TO MONITOR THIS PATIENT.
[2016-10-20] MEDS: *INSULIN REGULAR(HUMULIN R)HUM 100 UNIT/ML VIAL SQ PRN (21:28)
[2016-10-20] MEDS: MEMANTINE HCL 5 MG TABLET PO SCH (21:31)
[2016-10-20] MEDS: ATORVASTATIN 40 MG TABLET PO SCH (21:31)
[2016-10-21 08:00] VITALS: BP 119/69
[2016-10-21] MEDS: DIVALPROEX SODIUM 125 MG CAP.SPRINK PO SCH (08:49)
[2016-10-21] MEDS: BLOOD SUGAR DIAGNOSTIC 1 EACH STRIP IN SCH ×2 (08:49→12:09)
[2016-10-21] MEDS: glipiZIDE 10 MG TABLET PO SCH (08:50)
[2016-10-21] MEDS: BENZTROPINE MESYLATE (1 MG) 1 MG TABLET PO SCH (08:50)
[2016-10-21] MEDS: OXYBUTYNIN CHLORIDE 5 MG TABLET PO SCH (08:50)
[2016-10-21] MEDS: NIFEdipine XL (30MG) 30 MG TAB PO SCH (08:50)
[2016-10-21 08:51] VITALS: BP 123/78
[2016-10-21] MEDS: LOSARTAN POTASSIUM 50 MG TABLET PO SCH (08:51)
[2016-10-21] MEDS: HALOPERIDOL 1 MG TABLET PO SCH (08:51)
[2016-10-21] MEDS: INSULIN DETEMIR 100 UNIT/ML CARTRIDGE SQ SCH (08:55)
--- NOTE | 2016-10-21 10:11 | NUR ---
DR. DON GAVE AN ORDER TO D/C HOLD AND D/C TO [facility]. PT. WITHOUT DISTRESS, DENIES SUICIDAL AND HOMICIDAL AND TO FOLLOW UP WITH PSYCH AND MEDICAL DOCTORS.
--- NOTE | 2016-10-21 10:48 | NUR ---
SUMAYA SWARTZ MADE AWARE OF THE DISCHARGE AND SAID OK FOR DISCHARGE AND RECONCILED MEDS.
[2016-10-21] MEDS: INSULIN REGULAR, HUMAN 100 UNIT/ML 3 ML VIAL SQ PRN (12:12)
--- NOTE | 2016-10-21 13:45 | NUR ---
GPS ANTIQUE JEWELRY REPAIRER DISCHARGE NOTES PT. WAS CLEARED FOR DISCHARGE BY DR. DON. PT. CLEARED OF HOLD AND WAS DISCHARGED TO [facility]. THE DETECTIVE AND INTELLIGENCE ANALYST SUMAYA SWARTZ MEDICALLY CLEARED THE PT, MADE AWARE OF DISCHARGE, AND RECONCILED HER MEDICATIONS. COPIES OF MED RECON WERE SENT TO THE FACILITY. ALL DISCHARGE PAPERWORK REVIEWED WITH THE PATIENT, COPIED, SIGNED. PT. LEFT WITH ALL HER BELONGINGS AND SIGNED BELONGINGS FORM. PT'S FAMILY WAS MADE AWARE OF DISCHARGE. PT. DENIED ANY SUICIDAL OR HOMICIDAL IDEATION. ALL NEEDS WERE MET DURING SHIFT AND ORDERS CARRIED OUT ACCORDINGLY. PT. EXHIBITED NO SIGNS OF DISTRESS UPON DISCHARGE. LEFT FACILITY IN STABLE CONDITION VIA AMBULANCE TRANSPORT.
--- NOTE | 2016-10-21 15:33 | NUR ---
Discharge note: discharge to [facility] [address] [place] [address] via [facility]. Pt's daughter, Mima [phone] has been notified and agreed with the discharge plan. Pt. was calm and cooperative, denied suicidal/homicidal ideations. SW signed discharge paperwork and discharge instructions have been provided to the accepting facility. Pt. will be followed by facility assistant administrator Dr. Strickland and psychiatrist Dr. Terrell.
== END 2016-10-21 13:45 | DRG 885 ==
LOC: GPS 13:14
PROVIDERS: ADMIT Psychiatry & Neurology Psychosomatic Medicine; ATTEND Internal Medicine
DX: F31.9 Bipolar disorder, unspecified (principal); F02.81 Dementia in other diseases classified elsewhere, unspecified severity, with behavioral disturbance; E11.65 Type 2 diabetes mellitus with hyperglycemia; G30.9 Alzheimer's disease, unspecified; Z79.4 Long term (current) use of insulin; E78.5 Hyperlipidemia, unspecified; I10 Essential (primary) hypertension; D49.6 Neoplasm of unspecified behavior of brain; I25.10 Atherosclerotic heart disease of native coronary artery without angina pectoris; Z95.1 Presence of aortocoronary bypass graft
CPT/HCPCS: 36415; 80048-TC; 80053-TC; 80061-TC; 80164-TC; 82746; 82962-TC; 83540-TC; 83735-TC; 84100-TC; 84443-TC; 85025-TC; 87081-TC; J1631; J1815; Z7610

== ENCOUNTER 2018-10-29 10:26 | Inpatient (IN) | payer MEDICARE, MEDICAID ==
[~2018-10-29] VITALS: Ht 165.1 cm; Wt 64.0 kg
[~2018-10-29 10:26] MED LIST changes: -LOSA50TA21 PO; +LOSA50TA39 PO
--- NOTE | 2018-10-29 10:33 | NUR ---
YUNI BENNETT [facility]IV[facility] FOR GENERALIZED WEAKNESS SINCE THIS MORNING, TO ER BED 9, HOOKED TO MONITOR, CHANGED TO GOWN, PROVIDED W WARM BLANKET, AWAITING MD LAWLER.
[2018-10-29] MEDS ORDERED: BUSP5TAB3 PO (10:42)
[2018-10-29] MEDS ORDERED: FURO-145 PO (10:42)
[2018-10-29] MEDS ORDERED: DIVA-78 PO (10:42)
[2018-10-29] MEDS ORDERED: HYDR-4075 PO (10:42)
[2018-10-29] MEDS ORDERED: ACET-868 PO (10:42)
[2018-10-29] MEDS ORDERED: DIVA125C5 PO (10:42)
[2018-10-29] MEDS ORDERED: METF500T7 PO (10:42)
[2018-10-29] MEDS ORDERED: POTA10TA15 PO (10:42)
[2018-10-29] MEDS ORDERED: IV NS 0.9% 500 ML BAG IV ONE (11:00)
--- NOTE | 2018-10-29 11:04 | NUR ---
WHEELES OUT VIA GURNEY FOR CT SCAN
[2018-10-29 11:18] LABS: CALCIUM, SERUM 9.4 mg/dL (8.5-10.1); CARBON DIOXIDE 28 mmol/L (21-32); CHLORIDE 103 mmol/L (98-107); GLUCOSE 177 mg/dL (74-106); POTASSIUM 4.6 mmol/L (3.5-5.1); SODIUM SERUM 138 mmol/L (136-145); UREA NITROGEN, BLOOD 13 mg/dL (7-18)
[2018-10-29 11:23] LABS: ALANINE AMINOTRANSFERASE 20 U/L (12-78); ALBUMIN 3.1 g/dL (3.4-5.0); ALKALINE PHOSPHATASE 82 U/L (46-116); ASPARTATE AMINOTRANSFERASE 19 U/L (15-37); BILIRUBIN,DIRECT 0.1 mg/dL (0.0-0.2); BILIRUBIN,TOTAL 0.4 mg/dL (0.2-1.0); TOTAL PROTEIN, SERUM 7.5 g/dL (6.4-8.2)
[2018-10-29 11:34] LABS: BASOPHILS % (AUTO) 0.9 % (0.0-2.0); EOSINOPHILS % (AUTO) 0.1 % (0.0-6.0); HEMATOCRIT 37 % (33-45); HEMOGLOBIN 12.2 g/dL (11.5-14.8); LYMPHOCYTES # (AUTO) 1.3 /CMM (0.8-4.8); MEAN CORPUSCULAR HGB CONC 33 g/dl (31.0-36.0); MEAN CORPUSCULAR VOLUME 96 fL (82-100); MONOCYTES # (AUTO) 0.9 /CMM (0.1-1.30); NEUTROPHILS # (AUTO) 2.3 /CMM (1.8-8.9); PLATELET COUNT (AUTO) 162 /CMM (150-450); RED BLOOD CELL COUNT(AUTO) 3.86 MIL/uL (4.0-5.2); WHITE BLOOD COUNT (AUTO) 4.5 K/uL (4.3-11.0)
--- NOTE | 2018-10-29 11:41 | NUR ---
CALLED DR GELLER FOR A DR TO DR WILKES. LEFT A MESSAGE AND AWAITING HIS CALL.
--- NOTE | 2018-10-29 11:50 | NUR ---
CALLED HOUSE SUP FOR ASHER BED
--- NOTE | 2018-10-29 11:53 | NUR ---
RECEIVED ADMITTING TELEPHONE ORDERS FROM DR GELLER, NOTED.
--- NOTE | 2018-10-29 12:15 | NUR ---
DR. GELLER REQUESTED FOR MED/SURG BED. CALLED NURSING SUP. AND MADE AWARE.
--- NOTE | 2018-10-29 12:29 | NUR ---
MS BED 325-2 GIVEN
--- NOTE | 2018-10-29 12:47 | NUR ---
REPORT GIVEN TO HARJIT MEJIA OF MS UNIT
--- NOTE | 2018-10-29 13:01 | NUR ---
[facility]
[2018-10-29 13:05] VITALS: BP 127/78
[2018-10-29] MEDS ORDERED: IV D5/ 0.9% NACL 1,000 ML IV PRN (13:30)
[2018-10-29] MEDS ORDERED: ONDANSETRON HCL/PF 4 MG/2 ML VIAL IVP PRN (13:30)
[2018-10-29] MEDS ORDERED: ACETAMINOPHEN 325 MG TABLET PO PRN (13:30)
[2018-10-29] MEDS: ENOXAPARIN SODIUM 40 MG/0.4 ML DISP.SYRIN SQ SCH (14:00)
--- NOTE | 2018-10-29 14:50 | NUR ---
MS YARN TWISTER NOTES RECEIVED PT FROM ER VIA [facility] WITH 1NURSE ASSIST. PT ABLE TO AMBULATE FROM [facility] GOING INSIDE THE ROOM AND TO BED WITH MINIMUM ASSIST. PT A/O X1-2 WITH EPISODES OF CONFUSION AND FORGETFULNESS. ADMISSION INFORMATION PROVIDED FROM THE PATIENT, MOST QUESTIONS WERE NOT ANSWERED D/T DEMENTIA. PT TOLERATING RA, WITH NO ACUTE RESPIRATORY DISTRESS NOTED. PT DENIES PAIN OR ANY DISCOMFORT AT THE TIME OF TRANSFER. PT'S SKIN IS INTACT. VS STABLE; 127/78, 97, 16, 98.1, 97% RA. PT ORIENTED TO THE ROOM, STAFFS, MEALTIMES, ETC. PIV TO [facility] G20 SL, FLUSHED WITH NS, INTACT AND OPERATIONAL. ADMISSION ORDERS FROM DR. GELLER PLACED. PT KEPT COMFORTABLE IN BED. PT'S BED KEPT IN LOWEST, LOCKED POSITION WITH SR X3. CALL LIGHT AND FLUID KEPT WITHIN REACH. WILL CONTINUE PLAN OF CARE.
[2018-10-29 16:00] VITALS: BP 125/76
[2018-10-29] MEDS: hydrALAZINE HCL 10 MG TABLET PO SCH (16:33)
[2018-10-29] MEDS: busPIRone 5 MG TABLET PO SCH (16:34)
[2018-10-29] MEDS: DIVALPROEX SODIUM 125 MG CAP.SPRINK PO SCH (17:30)
--- NOTE | 2018-10-29 18:30 | NUR ---
MS RN CLOSING NOTES PT REMAINS IN BED, CALM. PT A/O X1-2 WITH EPISODES OF CONFUSION AND FORGETFULNESS. PT TOLERATING RA, WITH NO ACUTE RESPIRATORY DISTRESS NOTED. PT DENIES PAIN OR ANY DISCOMFORT AT THIS TIME. PT'S SKIN IS INTACT. PIV TO RAC G20 SL, FLUSHED WITH NS, INTACT AND OPERATIONAL. ALL NEEDS AND CARE ATTENDED. PT KEPT COMFORTABLE IN BED. PT'S BED KEPT IN LOWEST, LOCKED POSITION WITH SR X3. CALL LIGHT AND FLUID KEPT WITHIN REACH. WILL ENDORSE TO INCOMING NIGHT NURSE FOR NIKA.
--- NOTE | 2018-10-29 19:41 | NUR ---
MS/RN OPENING NOTED RECEIVED PATIENT ATTEMPTING TO GO TO BATHROOM HURRIEDLY, REQUIRING A ONE ON ONE SITTER FOR SAFETY, PATIENT DISORIENTED TO TIME AND PLACE AND REQUIRE CONSTANT REMINDERS, WEAK AND WITH UNSTEADY GAIT. RESPIRATIONS EVEN AND UNLABORED, SKIN WARM TO TOUCH, SITTER AT BEDSIDE,. MONITORING FOR ANY CHANGES, PATIENT REPORTED THAT SHE HAS A DAUGHTER, LIVES IN ASSISTED LIVING, TO FOLLOW UP. RECEIVED ENDORSEMENT FROM AM RN FOR NIKA.
[2018-10-29 20:00] VITALS: BP 116/69
--- NOTE | 2018-10-29 20:12 | NUR ---
MS/RN NOTES DAUGHTER OF PATIENT SERVANDO WITH CONTACT NO [phone] CALLED TO FOLLOW UP MOM'S PLAN OF CARE AND ABLE TO GET HOLD OF MOM SAID WILL COME AND VISIT TOMORROW.
[2018-10-29] MEDS ORDERED: DIVALPROEX SODIUM 500 MG TABLET.DR PO SCH (21:00)
--- NOTE | 2018-10-30 06:33 | NUR ---
MS/RN NOTES PATIENT AWAKE, ALERT X1, FORGETFUL AND REQUIRE ASSISTANCE FOR SAFETY PATIENT HURRIEDLY GET UP AND LEAVE, REQUIRE REMINDER AND FAMILY INVOLVE. ONE ON ONE SITTER AT BEDSIDE. WILL MONITOR AND ENDORSE TO AM RN FOR NIKA.
[2018-10-30] MEDS ORDERED: PANTOPRAZOLE 40 MG TABLET.DR PO SCH (07:30)
[2018-10-30 08:00] VITALS: BP 150/86
--- NOTE | 2018-10-30 08:18 | NUR ---
MS RN OPENING NOTES Received Patient resting, sitting up on chair and watching TV. A/O x 1-2 with episodes of forgetfulness and confusion. VS stable with no acute distress. Breathing even and unlabored on room air with no respiratory distress. Denies pain. 20g PIV on RAC clean, dry, intact and flushing well. Safety precautions in place. Sitter at bedside. All needs rendered at this time. Will continue to monitor.
[2018-10-30 08:33] VITALS: BP 150/86
[2018-10-30] MEDS: busPIRone 5 MG TABLET PO SCH (08:33)
[2018-10-30] MEDS: hydrALAZINE HCL 10 MG TABLET PO SCH (08:33)
[2018-10-30] MEDS: DIVALPROEX SODIUM 125 MG CAP.SPRINK PO SCH (08:33)
[2018-10-30] MEDS ORDERED: METFORMIN XR 500 MG TAB.SR.24H PO SCH (09:00)
[2018-10-30] MEDS ORDERED: NIFEdipine XL (30MG) 30 MG TAB PO SCH (09:00)
[2018-10-30 09:46] LABS: BASOPHILS % (AUTO) 0.2 % (0.0-2.0); EOSINOPHILS % (AUTO) 0.2 % (0.0-6.0); HEMATOCRIT 39 % (33-45); HEMOGLOBIN 12.7 g/dL (11.5-14.8); LYMPHOCYTES % (AUTO) 22.3 % (20.0-44.0); MEAN CORPUSCULAR HGB CONC 33 g/dl (31.0-36.0); MEAN CORPUSCULAR VOLUME 95 fL (82-100); MONOCYTES # (AUTO) 1.1 /CMM (0.1-1.30); MONOCYTES % (AUTO) 26.1 % (2.0-12.0); NEUTROPHILS # (AUTO) 2.2 /CMM (1.8-8.9); NEUTROPHILS % (AUTO) 51.2 % (43.0-81.0); PLATELET COUNT (AUTO) 177 /CMM (150-450); RED BLOOD CELL COUNT(AUTO) 4.07 MIL/uL (4.0-5.2); WHITE BLOOD COUNT (AUTO) 4.4 K/uL (4.3-11.0)
[2018-10-30 10:15] LABS: CALCIUM, SERUM 9.3 mg/dL (8.5-10.1); CARBON DIOXIDE 30 mmol/L (21-32); CHLORIDE 102 mmol/L (98-107); GLUCOSE 204 mg/dL (74-106); POTASSIUM 4.2 mmol/L (3.5-5.1); SODIUM SERUM 138 mmol/L (136-145); UREA NITROGEN, BLOOD 16 mg/dL (7-18)
[2018-10-30] MEDS ORDERED: POTASSIUM CHLORIDE 10 MEQ TABLET.SA PO SCH (13:30)
[2018-10-30] MEDS ORDERED: FUROSEMIDE 20 MG TABLET PO SCH (13:30)
[2018-10-30] MEDS: ENOXAPARIN SODIUM 40 MG/0.4 ML DISP.SYRIN SQ SCH (14:00)
--- NOTE | 2018-10-30 16:00 | NUR ---
MS SUPERVISOR GARAGE NOTES Patient discharged for [facility] at this time. Patient in stable condition. VS stable with no acute distress. Breathing even and unlabored on room air with no respiratory distress. Denies pain. Medication reconciliation and discharge orders reviewed and explained to Patient. Patient A/O x 1-2 with episodes of confusion and forgetfulness. Patient stated that she understands that she is okay to go back and will follow up PCP at the [facility]. All belongings with Patient. Report given to [employer] from the facility. Patient picked up by Ambulance.
== END 2018-10-30 16:10 | DRG 641 ==
LOC: ER 10:29 → MED 12:29
PROVIDERS: ADMIT Legal Medicine; ATTEND Legal Medicine
DX: E86.0 Dehydration (principal); F03.90 Unspecified dementia, unspecified severity, without behavioral disturbance, psychotic disturbance, mood disturbance, and anxiety; E11.9 Type 2 diabetes mellitus without complications; I10 Essential (primary) hypertension; J44.9 Chronic obstructive pulmonary disease, unspecified; K21.9 Gastro-esophageal reflux disease without esophagitis; F31.9 Bipolar disorder, unspecified; Z95.1 Presence of aortocoronary bypass graft; Z79.899 Other long term (current) drug therapy; Z79.4 Long term (current) use of insulin; Z79.84 Long term (current) use of oral hypoglycemic drugs
CPT/HCPCS: 36415; 70450-TC; 71045-TC; 80048-TC; 80076-TC; 84484-TC; 85025-TC; 85730-TC; 86850-TC; 87081-TC; 97116-TC; 97530-TC; G0378; J1650; J3490; J7040; J7042